=== PATIENT | female | born 1950 | race Caucasian/White ===

== ENCOUNTER → 2018-01-09 07:47 | Outpatient (CLI) | payer OTHER, SELFPAY ==
--- NOTE | 2018-01-09 | DI.MRI.S_ITS ---
PROCEDURE: MR KNEE RT WO CON INDICATIONS: CHRONIC KNEE PAIN TECHNIQUE: Noncontrast sagittal PD fast spin echo and T2 fast spin echo with fat saturation, sagittal 3-D FLASH with fat saturation; coronal T1 spin echo and PD fast spin echo with fat saturation, and axial PD fast spin echo with fat saturation through the knee. COMPARISON: [facility], MR, LOWER EXTREM. JNT WO CONTRAST, 07/14/2008, 15:05. FINDINGS: Image quality: Excellent. Menisci: There is amorphous high signal intensity within the anterior and horn and body of the lateral meniscus, without articular surface extension, consistent with mucoid degeneration, as before. There is medial extrusion of the medial meniscus. There is amorphous high signal intensity within the anterior horn, body, and posterior horn of the medial meniscus, with superior and inferior articular surface extension, indicating severe multifocal degenerative tearing. Cruciate ligaments: The anterior cruciate ligament demonstrates moderate signal loss. Posterior cruciate ligament is intact. Medial structures: The medial collateral ligament appears intact, but demonstrates a small amount of fluid deep to it. The posterior oblique ligament, semimembranosus tendon insertions, oblique popliteal ligament, and meniscocapsular junction appear intact. Visualized portions of the pes anserinus tendons appear normal. Mild T2 signal elevation within and surrounding the tibial insertion of the semimembranosus. Small amount of medial bursal fluid. Lateral structures: The lateral collateral ligament, long and short heads of the biceps femoris tendon appear intact. The popliteus tendon appears normal; the popliteofibular ligament appears intact. The posterosuperior and anteroinferior popliteomeniscal fascicles appear intact. The arcuate and fabellofibular ligaments appear intact, on either side of the lateral inferior geniculate artery. Iliotibial band appears normal. Anterior structures: The quadriceps and patellar tendons appear intact. Patellar alignment is normal. No femoral trochlear dysplasia or ventral trochlear prominence. No edema in the infrapatellar fat pad. Bones and cartilage: No bone marrow contusions or fractures. Moderate tricompartmental periarticular osteophyte formation is present. There is moderate ill-defined T2 signal elevation within the weightbearing aspects of the medial femoral condyle and medial tibial plateau. Mild ill-defined marrow signal within the weightbearing aspects of the lateral femoral condyle and lateral tibial plateau. Intraosseous ganglia within the lateral patellar facet are present, new since the prior examination. There is increased, moderate articular cartilage loss overlying the patellar apex and lateral patellar facet. There is increased, severe diffuse articular cartilage loss overlying the weightbearing aspects of the medial femoral condyle and medial tibial plateau, as well as the lateral femoral condyle and lateral tibial plateau. Joint space: There is physiologic knee joint fluid. No Nugent's cyst. Normal appearing synovial plicae are incidentally noted. IMPRESSION: 1. Partial-thickness tearing of the anterior cruciate ligament. 2. Medial meniscal extrusion and degenerative tearing. Mucoid degeneration lateral meniscus without definite tear. 3. Tricompartmental articular cartilage loss. 4. Small knee joint effusion. 5. Medial bursitis. 6. Insertional tendinitis of the semimembranosus. 7. Medial collateral ligament bursitis. Dictated by: Omi Blackman M.D. on 01/09/2018 at 9:50 Approved by: Omi Blackman M.D. on 01/09/2018 at 9:57
== END ==
PROVIDERS: Family Provider Family Medicine; PCP Family Medicine; Visit Provider Orthopaedic Surgery
DX: M25.561 Pain in right knee (principal); S83.241A Other tear of medial meniscus, current injury, right knee, initial encounter; M25.461 Effusion, right knee; M70.51 Other bursitis of knee, right knee; M76.9 Unspecified enthesopathy, lower limb, excluding foot
CPT/HCPCS: 73721

== ENCOUNTER 2018-02-25 06:17 | Inpatient (IN) | payer OTHER, SELFPAY ==
[2018-02-13 08:17] VITALS: BMI 40.3
[2018-02-25] VITALS (20 sets, daily range): BP systolic 90–132; BP diastolic 46–82; PULSE 65–90; RESP 10–16; TEMP 36.3–37.5; O2SAT 93–99; BMI 40.3
--- NOTE | 2018-02-25 06:30 | DI.RAD.S_ITS ---
PROCEDURE: XR KNEE RT 1TO2V INDICATIONS: post op knee TECHNIQUE: 2 view(s) of the knee acquired. COMPARISON: [facility] [place], XR KNEE ARTHRITIC SERIES , 12/23/2017, 10:26. FINDINGS: Bones: Patient is status post knee joint arthroplasty. Hardware components are in expected positions. Visualized bony structures are intact. Soft tissues: Overlying postoperative changes are noted. IMPRESSION: Acute postoperative changes of total right knee arthroplasty Dictated by: Josef Preston M.D. on 02/25/2018 at 11:27 Approved by: Josef Preston M.D. on 02/25/2018 at 11:27
[2018-02-25] MEDS: CELECOXIB 200 MG CAPSULE PO (06:52)
[2018-02-25] MEDS: ACETAMINOPHEN 325 MG TABLET 975 MG PO ×3 (06:52→20:22)
[2018-02-25] MEDS: LACTATED RINGERS 1,000 ML 42 ML IV ×2 (06:52→10:01)
[2018-02-25] MEDS: VANCOMYCIN 1,000 MG/200 ML FROZ.PIGGY 200 MG IV (06:54)
[2018-02-25] MEDS: PREGABALIN 75 MG CAPSULE PO (06:54)
[2018-02-25] MEDS: CEFAZOLIN 2 GM/100 ML FROZ.PIGGY IV ×2 (07:48→16:26)
--- NOTE | 2018-02-25 07:49 | PM.PREOP ---
Pre-operative Note Interval Note Pre-op Check: Yes History & Physical Reviewed by Physician and Yes Exam Performed Changes: No
--- NOTE | 2018-02-25 07:52 | SUR.PREOP ---
Block start time [0742] . Monitoring initiated and maintained throughout procedure. Oxygen and medications given per anesthesiologist instructions. Patient remained stable throughout procedure, no adverse reactions noted. Block end time [].0750
[2018-02-25] MEDS: TRANEXAMIC ACID 1,000 MG VIAL 1000 MG INJ ×2 (08:05→10:31)
--- NOTE | 2018-02-25 08:28 | SUR.OPER ---
Supine on padded OR bed. Pillow under head, arms secured on padded armboards <90 degree abduction. Safety belt across torso. Non-operative leg secured with tape over blanket over lower leg. Operative leg secured in DeMayo/Justin positioner. Foam padded brace at thigh of operative leg.
[2018-02-25] MEDS: BUPIVACAINE 0.25% W/ EPI VIAL 50 ML INJ (08:40)
[2018-02-25] MEDS: BUPIVACAINE LIPOSOME 266 MG/20 ML VIAL INJ (08:43)
[2018-02-25] MEDS: POVIDONE-IODINE 15 ML, SODIUM CHLORIDE 0.9% 250 ML TOP (08:45)
--- NOTE | 2018-02-25 09:32 | PM.PROC.1 ---
Procedures Date/Time Date of procedure: 02/25/18 Time of procedure: 07:40 Nerve Block Time out performed: Yes Local anesthetic used: lidocaine 1% (w/ epi 5mL + 15mL 0.5pivacaine) Location of anesthetic used: adductor canal Amount of anesthesia used (mL): 20 Nerve blocks: femoral (adductor canal) Procedure successful: Yes Patient tolerated procedure: well Complications: none Additional comments: Adductor canal block for post operative pain management. R/B discussed. Site marked. Consent verified/signed. Standard ASA monitors. NC O2. Chloroprep. Sterile technique. Femoral A/V/N identified medial mid thigh with US. Lidocaine skin wheal. 100mm x 21g Pajunk needle advanced with in-plane US guidance. Negative aspiration. LA injected medial and lateral to femoral artery. Negative aspiration throughout. No pain, no paresthesia with injection. VSS. Tolerated well. To OR.
--- NOTE | 2018-02-25 09:36 | P.PCN_ITS ---
Procedures Date/Time Date of procedure: 02/25/18 Time of procedure: 07:40 Nerve Block Time out performed: Yes Local anesthetic used: lidocaine 1% (w/ epi 5mL + 15mL 0.5 opivacaine) Location of anesthetic used: adductor canal Amount of anesthesia used (mL): 20 Nerve blocks: femoral (adductor canal) Procedure successful: Yes Patient tolerated procedure: well Complications: none Additional comments: Adductor canal block for post operative pain management. R /B discussed. Site marked. Consent verified/signed. Standard ASA monitors. NC O2. Chloroprep. Sterile technique. Femoral A/V/N identified medial mid thigh with US. Lidocaine skin wheal. 100mm x 21g Pajunk needle advanced with in-plane US guidance. Negative aspiration. LA injected medial and lateral to femoral artery. Negative aspiration throughout. No pain, no paresthesia with injection. VSS. Tolerated well. To OR.
--- NOTE | 2018-02-25 11:12 | P.OP_ITS ---
Operative Date/Time/Diagnoses Date of procedure: 02/25/18 Time of procedure: 08:06 Pre-op diagnosis: right knee OA Post-op diagnosis: same Procedure & Clinicians Procedure: right total knee arthroplasty Same procedure as scheduled: Yes Indications: The patient has had progressively worsening right knee pain with radiographic changes consistent with arthritis. Non-operative management has failed and the patient has requested total knee replacement. The risks, benefits and alternatives to surgery were discussed with the patient prior to proceeding. Risks discussed included, but were not limited to, failure to relieve pain, stiffness, infection, nerve damage, deep venous thrombosis, pulmonary embolism, stroke, coma, heart attack, permanent paralysis and , as well as the potential need for eventual revision of the prosthetic. Surgeon: Sandra Mehta Population Health Coach: Rowena Vanessa Anesthesia Type: General and Spinal Operative Notes Findings: severe right knee OA Closure Type: primary Specimen(s): none sent Implants & Drains: Emhta and Nephew Sheri BCS2 6 femur, 5 tibia, 35mm oval patella, poly 9 Applied: drain(s) Estimated Blood Loss (mL): 300 Blood products transfused: none Tourniquet time (min): 25 Procedure in detail: The patient was seen in the pre-operative area, where the patient identified the right knee as the operative site and this was marked with my initials. The patient received pre-operative antibiotics, and was taken to the operating room and placed on the operative table in the supine position. After satisfactory anesthesia, a part time receptionist out was performed. The right leg was encircled with a tourniquet about the proximal thigh, and the leg was prepared from the toes to the tourniquet with ChloroPrep in the usual fashion and draped through sterile drapes. The leg was elevated and exsanguinated with Eschmark bandage and the tourniquet inflated to [250] mmHg pressure. It was not working well so it was deflated after 7 minutes. The knee was approached through an approximately 18 cm incision centered over the patella and carried into the knee through a medial parapatellar arthrotomy. A portion of the medial and lateral meniscus was resected. Soft tissue was carefully mobilized around the patella the patella was measured with a caliper. Bone was resected from the patella and the patellar height was reconstituted with up an appropriate sized oval patellar component. For a cover was then placed on the patella. A small amount of additional medial and lateral meniscus was resected. The visionary guide fit well to the distal femur. It looked like an appropriate distal femoral cut and the cut was made without difficulty. The rotation was assessed and the appropriate size femoral guide was placed on the distal femur and finishing cuts were made. There was no evidence of notching. The anterior, posterior and chamfer cuts were then made. The posterior osteophytes and soft tissues were then removed. The posterior capsule was injected with part of a mixture of 60 ml 0.25% Marcaine mixed with 20 ml Exparel for post operative pain control. The remainder of this mixture was injected into the capsule and subcutaneous tissues during cement curing. The tibia was prepared and the visionaire guide fit well to the distal tibia. The rotation was assessed. The patient was placed in extension residual medial and lateral meniscus as well as any residual bone was carefully resected. 2mm additional tibia was resected. Hemostasis was achieved especially posteriorly. Additional local was injected into the posterior capsule. The extension gap was assessed and additional releases for gap balancing were performed as necessary. It was checked with the gap pneumatic tool operator. The femoral component was trial was placed and the notch was finished. Trial tibial and femoral components were then placed and the knee placed through a range of motion. Range of motion was [ 0-130], with good stability throughout the range. The tourniquet was reinflatted. The trials were then removed, and the tibia was finished. The bone was prepared with pulsatile lavage, and dried with a sponge. Cement was applied and the final tibia and femoral prosthetics placed. Excess cement was removed during and after cement curing. A glue gun had not been opened and needed to be found so the patella was cemented with a different cement batch. A brief Betadine soak was performed. After confirming there was no extruded cement posteriorly, the final tibial insert was placed. The knee was copiously irrigated and the tourniquet deflated. Hemostasis was obtained with the Aquamantys system. A drain was placed and brought out superolaterally. The capsule was closed with interrupted # 1 black braided suture. The subcutaneous layer was closed with barbed sutures, and the skin with a running 3-0 V-Lock suture and fili. An Aquacel Ag dressing was applied and the patient was taken to recovery having tolerated the procedure well. Complications: none Condition: stable Disposition: observation Plan for aftercare: The patient will be maintained on a standard total knee replacement protocol with weight bearing as tolerated. The patient will receive Aspirin and sequential compression devices for DVT prophylaxis. The patient will be discharged home when safe for the home environment.
[2018-02-25] MEDS: HYDROMORPHONE 2 MG INJ 0.5 MG IV (11:26)
--- NOTE | 2018-02-25 11:40 | SUR.PHASEI ---
attempted to call report, RN unavailable.
[2018-02-25] MEDS: LACTATED RINGERS 1,000 ML 125 ML IV ×2 (14:05→21:19)
--- NOTE | 2018-02-25 15:31 | PC.NURSE ---
PATIENT SLEEPY UPON ARRIVAL AT 1150. RESPONDS APPROPRIATELY. SAT 90% ON RA, HX TOBIAS. CONT PULSE OX PLACED. 2L/NC INITIATED R/T SLEEPING. HV UNCLAMPED AT 1300 PER QUICK PRINT OPERATOR INSTRUCTION. DAIN WRAP CDI. PATIENT ALERT AT 1400 AND CONVERSANT. RATES PAIN 3/10. DENIES NEED FOR PAIN MEDICATION AT THAT TIME. PHYSICAL THERAPY NOW IN WITH PATIENT. REPORT GIVEN TO VAN YUN.
--- NOTE | 2018-02-25 15:39 | PT.IIE ---
Current Diagnoses Unilateral primary osteoarthritis, right knee (02/25/18) Surgery Performed Operation Date: 02/25/18 07:45 Actual Procedures p Total Knee Arthroplasty(Right) - Sandra Mehta MD Surgical History (Last Updated 02/13/18 @ 09:28 by Yamileth Morales, RN) History of arthroplasty of right shoulder (Acute) History of section (Acute) History of tonsillectomy (Acute) History of total left hip arthroplasty (Acute) History of total right hip arthroplasty (Acute) Hx of cholecystectomy (Acute) S/P left unicompartmental knee replacement (Acute) Status post wrist surgery (Acute) Medical History (Last Updated 02/13/18 @ 09:31 by Yamileth Morales RN) Anxiety (Acute) Arthritis (Acute) Asthma (Acute) Depression (Acute) Eczema (Acute) Fatty liver (Acute) Glucose intolerance (Acute) Gout (Acute) HTN (hypertension) (Acute) Hyperlipidemia (Acute) Osteoarthritis (Acute) Palpitations (Acute) Rosacea (Acute) Sleep apnea (Acute) TIA (transient ischemic attack) (Acute) Vertigo (Acute) Physical Therapy Inpatient Evaluation/Re-Eval M1 PT/OT-IP Prior Functional Status Start: 02/25/18 16:37 Freq: NEEDED Status: Active Protocol: Document 02/25/18 15:39 MDD (Rec: 02/25/18 16:47 MDD [email or web address]) Medical Review Prior Functional Status Medical History Reviewed Yes Communication normal Mobility and Gait Pt used forearm crutches around her house, depending on how she felt, she would use one or two. Pt does report constant vertigo for the last 10 years, has learned to adjust by not moving her head too fast and modifying her surroundings. Activities of Daily Living and IADL's independent Social History Household Members none Living Arrangements House Number of Floors (Floors) Two Floors Number of Stairs To Enter/Railing? no stairs to enter. Pt has two floors in her home but only uses the first floor. 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 She [place] [address] M2 PT-IP Current Condition Start: 02/25/18 16:37 Freq: NEEDED Status: Active Protocol: Document 02/25/18 15:39 MDD (Rec: 02/25/18 16:47 MDD [email or web address]) Physical Therapy Current Condition Current Condition Evaluation Date 02/25/18 Treatment Diagnosis s/P R TKA Onset Date 02/24/18 Weight Bearing Status Weight Bearing Status Weight Bear as Tolerated M3 PT-IP Subjective Start: 02/25/18 16:37 Freq: NEEDED Status: Active Protocol: Document 02/25/18 15:39 MDD (Rec: 02/25/18 16:47 MDD [email or web address]) Subjective Physical Therapy Visit Type Type Initial Evaluation Visit Start Time 14:56 Visit Stop Time 15:39 Total Visit Minutes 47 Notes BP supine 104/59 mm Hg, sitting EOB 95/54 mm Hg. 112/62 mm Hg with activity. Number of LABORER TREE TAPPING Visits 0 Physical Therapy Visit Comments Patient Comments Pt motivated to get out of bed today. Therapy Pain Assessment Pain When Pain Assessed At Rest Pain Present Pain Present Pain Reported Location Right Knee Intensity 3 Scale Used Numeric (1 - 10) Description Aching M4 PT-IP Mobility and Gait Start: 02/25/18 16:37 Freq: NEEDED Status: Active Protocol: Document 02/25/18 15:39 MDD (Rec: 02/25/18 16:47 MDD [email or web address]) PT-Bed Mobility Assessment Rolling Type of Rolling Roll to Left Level of Assist Contact Guard Assistance Supine to Sit Supine to Sit Minimal Assistance Scooting Scooting to Edge of Bed Minimal Assistance PT-Transfer Assessment Sit to and From Stand Sit to and from Stand Contact Guard Assistance Equipment Transfer Assistive Device Gait Belt Front Wheeled Walker Transfers Transfer Destination Chair Transfer Technique Stand Step Pivot Transfer Ability Level of Assist Contact Guard Assistance Gait Assessment Gait Gait Assistance Required: Contact Guard Assist Distance (Feet) (feet) 5 Able to Maintain Weight Bearing Status Yes During Gait Assistive Devices Assistive Device Gait Belt Front Wheeled Walker Gait Deviations General Gait Pattern Within Normal Limits Antalgic Comments Gait Comments Did not perform additional gait training today due to drop in BP with supine to sit. PT-Balance Assessment Sitting Balance and Reactions Static Sitting Balance Ability Normal Dynamic Sitting Balance Ability Normal Standing Balance and Reactions Static Standing Balance Ability Good Dynamic Standing Balance Ability Good M5 PT-IP Objective Assessments Start: 02/25/18 16:37 Freq: NEEDED Status: Active Protocol: Document 02/25/18 15:39 MDD (Rec: 02/25/18 16:47 MDD [email or web address]) Orientation Orientation/Cognition Level of Alertness Alert Orientation Name Age Birthday Month Date Year Day of Week Place Situation Language Function Ability No Deficits Noted Safety Awareness Understands Safety Issues Memory Description No Deficits Noted Gross Range of Motion Lower Extremity ROM Assessment Right Impaired Strength Lower Extremity Strength Assessment Within Functional Limits Coordination Assessment Gross Coordination Gross Coordination WNL Sensation Assessment Sensation Gross Sensation WNL M6 PT-IP Treatment Start: 02/25/18 16:37 Freq: NEEDED Status: Active Protocol: Document 02/25/18 15:39 MDD (Rec: 02/25/18 16:47 MDD [email or web address]) Physical Therapy Treatment Exercises Knee ROM Measurement -10 to 80 degrees Education Education Provided Precautions Weight Bearing Status Post-Op Packet Safety M7 PT-IP Assessment and Plan Start: 02/25/18 16:37 Freq: NEEDED Status: Active Protocol: Document 02/25/18 15:39 MDD (Rec: 02/25/18 16:47 MDD [email or web address]) PT Summary Assessment and Plan Potential Rehabilitation Potential Excellent Status of Condition at Evaluation Stable Summary Impairments Pain ROM Balance Transfers Gait Activity Tolerance Progress Towards Goals Progressing Toward Goals Assessment Summary Pt demonstrates good progress towards goals this day. She required min A with R LE for supine to sit (does have a rail and a trapeze that she uses to get out of bed at home ). She was able to take a few steps and transfer with CGA. Will benefit from additional 1-2 sessions PT to assure she is safe to return home independently prior to d/c. Goals Bed Mobility Goal Independent Transfer Goal Independent Gait Goal Independent Gait Distance 100 feet Days to Meet Goals 2 Frequency of Treatment Frequency Of Treatment Twice a Day Treatment Plan Physical Therapy Treatment Plan Transfer Training Gait Training Therapeutic Exercise Discharge Planning Other Recommendations and Next Treatment Continue with gait endurance/ Focus activity tolerance. Recommendations To Nursing Amount of Assist Needed 1 Person Assist Discharge Recommendations PT Discharge Recommendations Home Equipment Needed for Home Before Pt may benefit from a shower Discharge chair - reports she uses two walkers set up near her stand alone tub (one in the tub at all times) and one next to it.
[2018-02-25] MEDS: ASPIRIN EC 81 MG TABLET PO (20:20)
[2018-02-25] MEDS: BUSPIRONE 15 MG TABLET PO (20:20)
[2018-02-25] MEDS: CITALOPRAM 20 MG TABLET 40 MG PO (20:20)
[2018-02-25] MEDS: LISINOPRIL 10 MG TABLET PO (20:21)
[2018-02-25] MEDS: TOPIRAMATE 25 MG TABLET 50 MG PO (20:32)
[2018-02-25] MEDS: IBUPROFEN 600 MG TABLET PO (23:44)
[2018-02-26] MEDS: CEFAZOLIN 2 GM/100 ML FROZ.PIGGY IV (02:06)
[2018-02-26] MEDS: OXYCODONE IR 5 MG TABLET PO ×6 (02:11→23:04)
--- NOTE | 2018-02-26 05:01 | PC.NURSE ---
Assumed care of pt from outgoing shift at 2300 8-14. Pt awake and alert. denies pain, was worried that she should be getting tylenol four times a day and not just three. discussed other pain med and pain relieving measures with pt and she stated she wanted to hold off for now on percolone and maybe an advil later. Pt has fluids infusing, tolerating. Pt very mobile with walker, ambulates steady gait. PT stated that this is her 6th knee replacement to same knee. Pt uses call light. belongings and call light within reach. bed alarm on for pt safety, end tidal CO2 on and monitoring- no alarms have sounded and pt breathing normal. Pt compliant with nursing assessment and voices needs. bed alarm on, side rails upx4 for pt request, will continue to monitor
[2018-02-26 05:05] VITALS: BP 105/60; PULSE 66; RESP 15; TEMP 36.4; O2SAT 99
[2018-02-26 06:00] LABS: Hematocrit 29.3 % (36-46)
[2018-02-26 08:19] VITALS: BP 92/32; PULSE 69; RESP 16; TEMP 37.2; O2SAT 99
--- NOTE | 2018-02-26 08:31 | PM.PNPO.1 ---
Subjective Date Patient Seen: 02/26/18 Time Patient Seen: 08:32 Interval history: Post op day 1. Patient is comfortably sitting in chair bedside. Patient reports pain level to be 7/10 with no pain medications. She would like pain meds at this time. Patient reports ambulating with walker in hallway during PT. Patient is concerned that she may be going home today and would prefer to be discharged tomorrow since her friends will be coming into town tomorrow morning to assist her at home. Patient denies chest pain, distress, fever or chills. Exam Vital Signs (past 8 hours): - 02/26/18 05:05 02/26/18 08:19 Temperature 97.6 F 98.9 F Pulse Rate 66 69 Respiratory Rate 15 16 Blood Pressure 105/60 92/32 L Pulse Oximetry 99 99 Oxygen Delivery Method Room Air Oxygen Flow Rate 0 Narrative Exam Narrative: Patient is alert and oriented. Patient is in no acute distress. Patient appears as a well developed women. Dressing noted on right knee with wound VAC intact. There is moderate output in wound vac. Expected post operative R knee swelling and tenderness noted. Dorsalis pedis and radial pulses 2+ bilaterally. Sensory to light touch intact in the lower extremities bilaterally. Muscle strength in dorsiflexion, plantarflexion and great toe extension 5/5 bilaterally. Calfs are soft, compressible and non tender bilaterally. Objective Labs Result Diagrams: 02/26/18 05:26 Labs: Laboratory Results - last 24 hr 02/26/18 05:26 Hgb 10.0 L Hct 29.3 L Assessment & Plan Post-op Postoperative Procedures Operation Date: 02/25/18 07:45 Actual Procedures Side Surgeon p Total Knee Arthroplasty Right Sandra Mehta MD Patient will continue mobilizing with PT. Plan to discharge home tomorrow. Spoke with nurse about pain control. Postoperative day: 1 Postoperative status: doing well Postoperative plan: routine post-op care and ambulate Time Spent With Patient less than 15 minutes Quality VTE Deep Vein Thrombosis/Pulmonary Embolism Present on Admission: No
[2018-02-26] MEDS: ACETAMINOPHEN 325 MG TABLET 975 MG PO ×3 (08:45→20:18)
[2018-02-26] MEDS: ASPIRIN EC 81 MG TABLET PO ×2 (08:52→20:19)
[2018-02-26] MEDS: DOCUSATE 100 MG CAPSULE PO ×2 (08:52→20:19)
[2018-02-26] MEDS: TOPIRAMATE 25 MG TABLET 50 MG PO ×2 (10:28→20:20)
--- NOTE | 2018-02-26 10:32 | PT.IPTN ---
Current Diagnoses Unilateral primary osteoarthritis, right knee (02/25/18) Surgery Performed Operation Date: 02/25/18 07:45 Actual Procedures p Total Knee Arthroplasty(Right) - Sandra Mehta MD Physical Therapy Treatment Note M2 PT-IP Current Condition Start: 02/25/18 16:37 Freq: NEEDED Status: Active Protocol: Document 02/25/18 15:39 MDD (Rec: 02/25/18 16:47 MDD [email or web address]) Physical Therapy Current Condition Current Condition Evaluation Date 02/25/18 Treatment Diagnosis s/P R TKA Onset Date 02/24/18 Weight Bearing Status Weight Bearing Status Weight Bear as Tolerated M3 PT-IP Subjective Start: 02/25/18 16:37 Freq: NEEDED Status: Active Protocol: Document 02/26/18 10:32 MDD (Rec: 02/26/18 10:57 MDD [email or web address]) Subjective Physical Therapy Visit Type Type Treatment Note Visit Start Time 10:00 Visit Stop Time 10:32 Total Visit Minutes 32 Notes BP 117/66 mm Hg at rest. Number of SPORTS RECRUITER Visits 0 Physical Therapy Visit Comments Patient Comments Pt reports feeling much more pain today in her right knee than yesterday. Is concerned about getting everything coordinated to d/c today, as well as her ability to manage independently at home. Therapy Pain Assessment Pain When Pain Assessed At Rest Pain Present Pain Present Pain Reported Location Right Knee Intensity 5 Scale Used Numeric (1 - 10) Description Aching Pain Management Techniques Apply Cold Timing of Activity with Medications M4 PT-IP Mobility and Gait Start: 02/25/18 16:37 Freq: NEEDED Status: Active Protocol: Document 02/25/18 15:39 MDD (Rec: 02/25/18 16:47 MDD [email or web address]) PT-Bed Mobility Assessment Rolling Type of Rolling Roll to Left Level of Assist Contact Guard Assistance Supine to Sit Supine to Sit Minimal Assistance Scooting Scooting to Edge of Bed Minimal Assistance PT-Transfer Assessment Sit to and From Stand Sit to and from Stand Contact Guard Assistance Equipment Transfer Assistive Device Gait Belt Front Wheeled Walker Transfers Transfer Destination Chair Transfer Technique Stand Step Pivot Transfer Ability Level of Assist Contact Guard Assistance Gait Assessment Gait Gait Assistance Required: Contact Guard Assist Distance (Feet) (feet) 5 Able to Maintain Weight Bearing Status Yes During Gait Assistive Devices Assistive Device Gait Belt Front Wheeled Walker Gait Deviations General Gait Pattern Within Normal Limits Antalgic Comments Gait Comments Did not perform additional gait training today due to drop in BP with supine to sit. PT-Balance Assessment Sitting Balance and Reactions Static Sitting Balance Ability Normal Dynamic Sitting Balance Ability Normal Standing Balance and Reactions Static Standing Balance Ability Good Dynamic Standing Balance Ability Good M5 PT-IP Objective Assessments Start: 02/25/18 16:37 Freq: NEEDED Status: Active Protocol: Document 02/25/18 15:39 MDD (Rec: 02/25/18 16:47 MDD [email or web address]) Orientation Orientation/Cognition Level of Alertness Alert Orientation Name Age Birthday Month Date Year Day of Week Place Situation Language Function Ability No Deficits Noted Safety Awareness Understands Safety Issues Memory Description No Deficits Noted Gross Range of Motion Lower Extremity ROM Assessment Right Impaired Strength Lower Extremity Strength Assessment Within Functional Limits Coordination Assessment Gross Coordination Gross Coordination WNL Sensation Assessment Sensation Gross Sensation WNL M6 PT-IP Treatment Start: 02/25/18 16:37 Freq: NEEDED Status: Active Protocol: Document 02/26/18 10:32 MDD (Rec: 02/26/18 10:57 MDD [email or web address]) Physical Therapy Treatment Exercises Exercises Ankle Pumps Gluteal Sets Quad Sets Heel Slides Straight Leg Raises Education Education Provided Precautions Safety M7 PT-IP Assessment and Plan Start: 02/25/18 16:37 Freq: NEEDED Status: Active Protocol: Document 02/26/18 10:32 MDD (Rec: 02/26/18 10:57 MDD [email or web address]) PT Summary Assessment and Plan Potential Rehabilitation Potential Excellent Status of Condition at Evaluation Stable Summary Impairments Pain ROM Bed Mobility Transfers Gait Activity Tolerance Progress Towards Goals Progressing Toward Goals Slow Progress due to Pain Assessment Summary Pt limited this morning in gait endurance by increased pain in R knee. She had a little more difficulty with sit to stand, requiring SBA, but was able to independently perform sit to supine using a gait belt to assist with R LE movement. She should continue to benefit from inpatient therapy to maximize function for safe d/c home. Goals Bed Mobility Goal Independent Transfer Goal Independent Gait Goal Independent Gait Distance 100 feet Days to Meet Goals 2 Frequency of Treatment Frequency Of Treatment Twice a Day Treatment Plan Physical Therapy Treatment Plan Transfer Training Gait Training Therapeutic Exercise Discharge Planning Other Recommendations and Next Treatment Continue with gait endurance/ Focus activity tolerance. Recommendations To Nursing Amount of Assist Needed 1 Person Assist Discharge Recommendations PT Discharge Recommendations Home
[2018-02-26 12:07] VITALS: BP 98/50; PULSE 61; RESP 15; TEMP 37.2; O2SAT 97
[2018-02-26] MEDS: IBUPROFEN 600 MG TABLET PO (13:43)
--- NOTE | 2018-02-26 14:21 | CM.DANOTE ---
Patient is a 67 year old female who was admitted on 02/25/18 for Rt Total Knee Arthro. Pt has [facility] for insurance and her PCP is Dr. Garnett. EMR was reviewed. Per Ortho PA, pt tolerated procedure well but not stable for d/c today but likely tomorrow pending PT. Per PT, pt having more pain this morning and will continue working with the pt today with anticipation of d/c home alone tomorrow. SW met bedside with pt and explained role and pt confirmed that she lives at home alone on [address] but has local supportive friends. Pt lives in a cabin on [address] with composting toilet and claw foot bath tub but pt has had 5 joint replacement surgeries in the past and is well equipped for managing at home on one floor of her house with supportive friends. Pt also has a helpful service dog due to her chronic vertigo and mobility issues. Pt is independent at baseline and has crutches and a walker for use if needed. 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 SW updated PT and Ortho PA on need for morning discharge if pt is medically stable in order to catch the ferry back home. Plan: SW to follow closely for likely pt d/c home tomorrow morning if medically stable to catch the 11ish ferry back to [place] via friend POV. SHAYE Isaacs Discharge Planning/Care Management CM Discharge Assessment Start: 02/26/18 13:56 Freq: Status: Active Protocol: Document 02/26/18 13:56 BF (Rec: 02/26/18 14:21 [id number]) Discharge Planning Assessment Assigned Translator And Interpreter SHAYE LANDEROS/Assigned Designee Name Escobarstanley Howell Contact Information [phone] Advance Directives? Yes: POLST form Advance Directives on File No History Provided By Patient Medical Record Has Patient been admitted in last 30 No days? Prior Living Arrangements House Household Members none Comment Lives in a cabin on [address] with composting toilet Type of transporation used prior to Drives own vehicle admit Independent with ADL's Yes Is patient alert and oriented? Yes Caregiver for Another No DME Already Rented / Owned FWW / Walker Comment Likely home with outpt PT pending pain management Barriers to Discharge Yes Comment [place] to [place] and lives alone but has supports and transport Discharge Plan Home Community Services Physical Therapy Transportation Arrangement Friend to provide transport home via ferry at d/c. Referrals Initiated None needed Inpatient Status as of 02/25/18 Whiteboard Updated in Patient Room with Yes name and ext. # of Translator And Interpreter Review Status In Process Next Review Date 02/27/18 Next Review Type Continued Stay Review
--- NOTE | 2018-02-26 15:05 | PC.NURSE ---
Patient doing well today, working with PT again at this time. Hemovac still putting out 150cc, intact. Per Lucille Doyle, dc drain once drainage is less than 100ml/shift. Patient planning for DC early tomorrow morning, aware. call light within reach.
[2018-02-26 15:20] VITALS: BP 104/52; PULSE 68; RESP 18; TEMP 36.3
--- NOTE | 2018-02-26 15:39 | PT.IPTN ---
Current Diagnoses Unilateral primary osteoarthritis, right knee (02/25/18) Surgery Performed Operation Date: 02/25/18 07:45 Actual Procedures p Total Knee Arthroplasty(Right) - Sandra Mehta MD Physical Therapy Treatment Note M2 PT-IP Current Condition Start: 02/25/18 16:37 Freq: NEEDED Status: Active Protocol: Document 02/25/18 15:39 MDD (Rec: 02/25/18 16:47 MDD [email or web address]) Physical Therapy Current Condition Current Condition Evaluation Date 02/25/18 Treatment Diagnosis s/P R TKA Onset Date 02/24/18 Weight Bearing Status Weight Bearing Status Weight Bear as Tolerated M3 PT-IP Subjective Start: 02/25/18 16:37 Freq: NEEDED Status: Active Protocol: Document 02/26/18 15:35 GGD (Rec: 02/26/18 15:39 GGD [email or web address]) Subjective Physical Therapy Visit Type Type Treatment Note Visit Start Time 15:00 Visit Stop Time 15:30 Total Visit Minutes 30 Physical Therapy Visit Comments Patient Comments Pt states she plans on going home tomorrow. Therapy Pain Assessment Pain When Pain Assessed At Rest Pain Present Pain Present Pain Reported Location Right Knee Intensity 5 Scale Used Numeric (1 - 10) Pain Management Techniques Apply Cold Timing of Activity with Medications M4 PT-IP Mobility and Gait Start: 02/25/18 16:37 Freq: NEEDED Status: Active Protocol: Document 02/26/18 15:35 GGD (Rec: 02/26/18 15:39 GGD [email or web address]) PT-Bed Mobility Assessment Sit to Supine Sit to Supine Contact Guard Assistance Scooting Scooting to Edge of Bed Standby Assistance PT-Transfer Assessment Sit to and From Stand Sit to and from Stand Contact Guard Assistance Equipment Transfer Assistive Device Gait Belt Front Wheeled Walker Transfers Transfer Destination Bed Gait Assessment Gait Gait Assistance Required: Contact Guard Assist Distance (Feet) (feet) 175 Assistive Devices Assistive Device Gait Belt Front Wheeled Walker Gait Deviations General Gait Pattern Within Normal Limits Antalgic M5 PT-IP Objective Assessments Start: 02/25/18 16:37 Freq: NEEDED Status: Active Protocol: Document 02/25/18 15:39 MDD (Rec: 02/25/18 16:47 MDD [email or web address]) Orientation Orientation/Cognition Level of Alertness Alert Orientation Name Age Birthday Month Date Year Day of Week Place Situation Language Function Ability No Deficits Noted Safety Awareness Understands Safety Issues Memory Description No Deficits Noted Gross Range of Motion Lower Extremity ROM Assessment Right Impaired Strength Lower Extremity Strength Assessment Within Functional Limits Coordination Assessment Gross Coordination Gross Coordination WNL Sensation Assessment Sensation Gross Sensation WNL M6 PT-IP Treatment Start: 02/25/18 16:37 Freq: NEEDED Status: Active Protocol: Document 02/26/18 15:35 GGD (Rec: 02/26/18 15:39 GGD [email or web address]) Physical Therapy Treatment Exercises Exercises Ankle Pumps Quad Sets Heel Slides Straight Leg Raises Seated Knee Flexion/Extension M7 PT-IP Assessment and Plan Start: 02/25/18 16:37 Freq: NEEDED Status: Active Protocol: Document 02/26/18 15:35 GGD (Rec: 02/26/18 15:39 GGD [email or web address]) PT Summary Assessment and Plan Summary Assessment Summary Pt improving with mobility. She SBA to CGA with mobility. She was able to progress her gait distance. Frequency of Treatment Frequency Of Treatment Twice a Day Treatment Plan Physical Therapy Treatment Plan Transfer Training Gait Training Therapeutic Exercise Discharge Planning Other Recommendations and Next Treatment Continue with gait endurance/ Focus activity tolerance. Recommendations To Nursing Amount of Assist Needed 1 Person Assist Discharge Recommendations PT Discharge Recommendations Home
--- NOTE | 2018-02-26 19:00 | PC.NURSE ---
Shaina shift note: Patient awake and alert, up out of bed to BR and chair. Shekhar wrap overlying Aquacel CDI. CMS intact RLE. Pain relieved adequately with Oxycodone x 1 tab and scheduled Tylenol. Hemovac DC'd as ordered. < 100ml. Per PT patient to home in the am. Patient would like to go home by 0900 to catch Exam18 to [place]. Mobilizing well. Call light within reach .
[2018-02-26 19:45] VITALS: BP 107/67; PULSE 67; RESP 18; TEMP 36.7
[2018-02-26] MEDS: BUSPIRONE 15 MG TABLET PO (20:18)
[2018-02-26] MEDS: CITALOPRAM 20 MG TABLET 40 MG PO (20:19)
[2018-02-26 20:25] VITALS: BP 104/52; PULSE 61
[2018-02-27 00:19] VITALS: BP 110/66; PULSE 63; RESP 15; TEMP 36.6
[2018-02-27] MEDS: OXYCODONE IR 5 MG TABLET PO ×2 (02:13→06:49)
[2018-02-27 04:58] VITALS: BP 99/60; PULSE 62; RESP 15; TEMP 36.6
--- NOTE | 2018-02-27 07:40 | PM.DS.1 ---
History of Present Illness Date Patient Seen: 02/27/18 Time Patient Seen: 07:41 Chief complaint: rt knee total arthroplasty [id number] Narrative: The patient has had progressively worsening right knee pain with radiographic changes consistent with arthritis. Non-operative management has failed and the patient has requested total knee replacement. The risks, benefits and alternatives to surgery were discussed with the patient prior to proceeding. Risks discussed included, but were not limited to, failure to relieve pain, stiffness, infection, nerve damage, deep venous thrombosis, pulmonary embolism, stroke, coma, heart attack, permanent paralysis and , as well as the potential need for eventual revision of the prosthetic. Discharge Providers Date of admission: 02/25/18 06:17 Primary care physician: Willam Garnett MD Consults: 02/25/18 13:17 Consult to Discharge Planning Routine Comment: Consult to Physical Therapy Evaluate & Treat Comment: oob today Physician Instructions: postop TKA protocol Consult to Respiratory Therapy Evaluate & Treat Comment: Physician Instructions: Evaluate and treat Discharge provider: Xavier Doyle PA-C Summary Discharge Diagnosis: Status post right total knee arthroplasty Hospital Course: Patient admitted to the hospital for right total knee arthroplasty. Patient consented to the same. Patient taken to the operating room underwent right total knee arthroplasty. Patient had general and spinal anesthesia. Patient back in her room recovering well as in stable condition. She does have caregiver home to assist her. She will be maintained on a standard total knee replacement protocol with weight-bearing as tolerated. Exam Vital Signs (past 8 hours): - 02/27/18 00:19 02/27/18 04:58 Temperature 98 F 98 F Pulse Rate 63 62 Respiratory Rate 15 15 Blood Pressure 110/66 99/60 Oxygen Delivery Method Room Air Oxygen Flow Rate 0 Narrative Exam Narrative: 67-year-old female resting comfortably in bed in no apparent distress. The pain is been moderate. No fever chills. No shortness of breath or chest pain. Her right knee dressing is clean, dry and intact. Sensation grossly intact to light touch right lower extremity. Motor function is intact distally. Objective Labs Result Diagrams: 02/26/18 05:26 Discharge Plan Discharge Plan Patient Disposition: Home, Self-Care Discharge comment: DC home today Discharge Med Rec/Prescriptions Prescriptions: New acetaminophen 325 mg Tablet 975 mg PO TID Qty: 90 RF: 0 aspirin 81 mg Tablet,Delayed Release (Dr/Ec) 81 mg PO BID Qty: 60 RF: 0 ibuprofen 600 mg Tablet 600 mg PO Q6HR PRN (Reason: As Needed For Fever/Mild Pain) Qty: 90 RF: 0 oxycodone 5 mg tablet 5 mg PO Q3H PRN (Reason: pain) Qty: 60 RF: 0 oxycodone 5 mg Tablet 5 mg PO Q3HR PRN (Reason: Pain, Moderate (4-6)) Qty: 60 RF: 0 Continue furosemide [Lasix] 20 MG tablet 10 mg PO QDAY Qty: 0 RF: 0 phentermine 15 mg Capsule 15 mg PO QAM RF: 0 naproxen 500 mg Tablet 500 mg PO BID RF: 0 topiramate 50 mg Tablet 50 mg PO BID RF: 0 buspirone 5 MG tablet 15 mg PO BEDTIME RF: 0 citalopram 40 MG tablet 40 mg PO BEDTIME RF: 0 lisinopril 10 MG tablet 10 mg PO BEDTIME RF: 0 albuterol sulfate [Ventolin HFA] 90 MCG/PUFF HFA aerosol inhaler 2 puff INH Q4H PRN (Reason: Asthma) RF: 0 Disabled Parking Permit 1 ea miscellaneous DIRECTED RF: 0 Discontinued aspirin 81 mg Tablet,Delayed Release (Dr/Ec) 81 mg PO DAILY RF: 0 Follow up/Referrals: aSndra Mehta MD [Physician] - (Follow up 5-7 days) Willam Garnett MD [Primary Care Provider] - Provider Discharge Instructions Diet: Diet as Tolerated Activity: WBAT Cold/Heat Therapy: Ice as needed Skin/Wound/Dressing Care Report to your healthcare provider any signs of infection, such as:: chills, fever, increased pain and unusual drainage Dressing: Keep clean and dry Visit Report/Discharge Packet Instructions: DI for Knee Replacement Stand Alone Forms: Surgery Discharge Visit Report Forms: Stroke Signs & Symptoms Discharge Data Primary Care Provider: Willam Garnett Attending Provider: Sandra Mehta Admit Date/Time: 02/25/18 06:17 Quality VTE Deep Vein Thrombosis/Pulmonary Embolism Present on Admission: No
[2018-02-27 07:43] VITALS: BP 106/64; PULSE 62; RESP 16; TEMP 36.9
--- NOTE | 2018-02-27 08:48 | CM.DPC ---
DCP Discharge Home Per Ortho PA, pt is medically stable to d/c home today with no identified barriers to discharge. Per PT, pt making progress and less painful today and safe d/c home. SW met bedside with pt and explained role again and pt confirms that she is agreeable with d/c home and her friend is on his way on the ferry to transport her home. Pt does not anticipate any needs once home to [place]. Plan: Patient to d/c home today via friend POV back to [place] and has Priority Boarding pass for the 1200 ferry. No SW needs at this time. SHAYE Isaacs
[2018-02-27] MEDS: ACETAMINOPHEN 325 MG TABLET 975 MG PO (09:23)
[2018-02-27] MEDS: ASPIRIN EC 81 MG TABLET PO (09:24)
[2018-02-27] MEDS: TOPIRAMATE 25 MG TABLET 50 MG PO (09:24)
[2018-02-27] MEDS: OXYCODONE IR 5 MG TABLET 10 MG PO (11:06)
--- NOTE | 2018-02-27 11:06 | PC.NURSE ---
discharge instructions and home care handout reviewed with patient, patient states understanding and has no further questions or concerns at this time. patient reports having follow up appointments already scheduled. Patient given prescription for oxycodone to fill at pharmacy of choice. patient given oxycodone 10mg po prior to leaving per order as patient has to ride ferry to [place] and wanted adequate control to get home. IV was dc'd intact. Aquacel dressing remains CDI. Patient instructed to call surgeons office with any questions or concerns. Patient escorted out via wheelchair with all belongings by TOWN PLANNER, to be discharged to home with a friend.
== END 2018-02-27 11:11 | disposition home or self-care (01) | DRG 470 ==
PROVIDERS: Admitting Provider Orthopaedic Surgery; Family Provider Family Medicine; PCP Family Medicine; Visit Provider Orthopaedic Surgery
PROC: 0SRC0JZ Replacement of Right Knee Joint with Synthetic Substitute, Open Approach (ICD-10-PCS; CPT 27447; principal; 2018-02-25 07:45)
DX: M17.11 Unilateral primary osteoarthritis, right knee (principal); I10 Essential (primary) hypertension; J45.909 Unspecified asthma, uncomplicated; G47.33 Obstructive sleep apnea (adult) (pediatric); F41.9 Anxiety disorder, unspecified; Z86.73 Personal history of transient ischemic attack (TIA), and cerebral infarction without residual deficits
CPT/HCPCS: 36415; 64450; 73560; 85014; 85018; 94760; 97110; 97161; 97530; C1776; C9290; J0690; J1100; J1170; J2250; J2405; J2704; J3010; J3370

== ENCOUNTER → 2018-05-03 08:58 | Outpatient (CLI) | payer OTHER, SELFPAY ==
[2018-02-25 13:17] VITALS: BMI 40.3
--- NOTE | 2018-05-03 | DI.MG.S_ITS ---
BILATERAL DIGITAL SCREENING MAMMOGRAM 3D/2D WITH CAD: 05/03/2018 CLINICAL: Routine screening. Family history of breast cancer. Comparison is made to exams dated: 08/09/2015 mammogram, 10/13/2012 mammogram - [facility], and 05/24/2010 mammogram - [facility]. There are scattered fibroglandular elements in both breasts. Current study was also evaluated with a Computer Aided Detection (CAD) system. No significant masses, calcifications, or other findings are seen in either breast. There has been no significant interval change. IMPRESSION: NEGATIVE There is no mammographic evidence of malignancy. A 1 year screening mammogram is recommended. This exam was interpreted at Station ID: [id number]. NOTE: For mammograms, a report in lay terms will be sent to the patient. Approximately 15% of breast malignancies will not be visualized mammographically. In the management of a palpable breast mass, a negative mammogram must not discourage biopsy of a clinically suspicious lesion. Electronically Signed By: Danielle hodges/vern:05/06/2018 09:42:39 letter sent: Normal Exam ACR BI-RADS Category 1: Negative [id number]
== END ==
PROVIDERS: Family Provider Family Medicine; PCP Family Medicine; Visit Provider Family Medicine
DX: Z12.31 Encounter for screening mammogram for malignant neoplasm of breast (principal); Z80.3 Family history of malignant neoplasm of breast
CPT/HCPCS: 77063; 77067

== ENCOUNTER → 2018-05-28 10:20 | Outpatient (CLI) | payer OTHER, MEDICAID, SELFPAY ==
[2018-02-25 13:17] VITALS: BMI 40.3
[2018-05-28 12:27] LABS: Add Manual Diff / Slide Review NO; Basophils Percent Auto 0.7 % (0-2); Eosinophils Percent Auto 2.5 % (2-4); Hematocrit 39.4 % (36-46); Hemoglobin 12.6 g/dL (12.0-16.0); Lymphocytes Percent Auto 24.2 % (25-40); Mean Corpuscular Hemoglobin 29.7 PG (26-34); Mean Corpuscular Volume 92.6 fL (80-100); Monocytes Percent Auto 10.6 % (3-14); Neutrophils Absolute Auto 5000 /uL (3000-5900); Platelet Count 354 X10^3/uL (150-400); Red Blood Cell Count 4.26 X10^6/uL (4.0-5.2)
[2018-05-28 12:50] LABS: Erythrocyte Sedimentation Rate 31 MM/HR (0-20)
[2018-05-28 20:28] LABS: C-Reactive Protein Quant < 0.5 mg/dL (<1.0)
== END ==
PROVIDERS: Family Provider Nurse Practitioner Family; PCP Nurse Practitioner Family; Visit Provider Orthopaedic Surgery
DX: M17.11 Unilateral primary osteoarthritis, right knee (principal); Z96.651 Presence of right artificial knee joint
CPT/HCPCS: 36415; 85025; 85651; 86140

== ENCOUNTER → 2018-09-23 16:31 | Outpatient (CLI) | payer OTHER, MEDICAID, SELFPAY ==
[2018-02-25 13:17] VITALS: BMI 40.3
--- NOTE | 2018-09-23 16:34 | DI.CT.S_ITS ---
PROCEDURE: CT PEL WO CON INDICATIONS: PAIN IN RIGHT HIP TECHNIQUE: Noncontrast 3 mm axial sections acquired through the bony pelvis, with coronal and sagittal reformatting. COMPARISON: [facility], CT, ABDOMEN WITH CONTRAST, 12/15/2013, 11:08. FINDINGS: Image quality: Excellent. Bones: Bilateral hip arthroplasties. No evidence of hardware failure or loosening. No lytic or blastic bony lesions. No obvious muscle pulse. Soft tissues: There is a 4.5 x 4.3 cm cystic ovarian lesion off the right adnexa. This is consistent with a cystic neoplasm of the right ovary. No lymphadenopathy. No free air or free fluid. IMPRESSION: 1. Bilateral hip arthroplasties. 2. No acute abnormalities. 3. 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 Comment: Suggest gynecological consultation. Dictated by: James Dickson M.D. on 09/24/2018 at 9:35 Approved by: James Dickson M.D. on 09/24/2018 at 9:41
== END ==
PROVIDERS: Family Provider Nurse Practitioner Family; PCP Nurse Practitioner Family; Visit Provider Physician Assistant
DX: M25.551 Pain in right hip (principal); N83.201 Unspecified ovarian cyst, right side; Z96.643 Presence of artificial hip joint, bilateral
CPT/HCPCS: 72192

== ENCOUNTER → 2018-09-25 12:09 | Outpatient (CLI) | payer OTHER, MEDICAID, SELFPAY ==
[2018-02-25 13:17] VITALS: BMI 40.3
--- NOTE | 2018-09-25 12:16 | DI.US.S_ITS ---
PROCEDURE: US PELVIC COMPLETE INDICATIONS: CYSTIC OVARIAN LESION OFF THE RIGHT ADNEXA SEEN ON CT SCAN TECHNIQUE: Real-time scanning was performed of the pelvic organs, with image documentation. Additional endovaginal scanning was necessary due to incomplete visualization of the adnexal and endometrial structures by transabdominal scanning. COMPARISON: [facility], US, ABDOMEN COMPLETE, 09/20/2015, 12:48. [facility], US, ABDOMEN COMPLETE, 06/27/2011, 8:21. [facility], US, ABDOMEN COMPLETE, 09/08/2008, 8:54. [facility], CT, ABDOMEN WITH CONTRAST, 12/15/2013, 11:08. [facility], CT, CT PEL WO CON, 09/23/2018, 16:36. FINDINGS: Transabdominal scanning: Limited scanning through the kidneys shows no hydronephrosis. No pathologic free abdominal or pelvic fluid. Endovaginal scanning: Uterus: Uterus is atrophic measuring 4.7 x 2.4 x 3.2 cm. The endometrium measures 3 mm in combined thickness. A nabothian cyst is noted. There are calcific foci in myometrium. Ovaries: There is a 4.2 x 2.6 x 4.2 cm thin-walled cystic mass in the right adnexa. No normal ovarian tissues are visualized on either side. There is a large large complex cyst entricular left kidney with fluid fluid level measuring 5.4 cm, partially visualized. IMPRESSION: 1. A 4.2 x 2.6 x 4.2 cm thin-walled cystic mass in the right adnexa. Normal ovaries are not identified on either side. 2. Atrophic uterus. 3. A large complex cyst is noted below the left kidney, which demonstrates a fluid-fluid level. This is partially visualized. Dictated by: Beth Sullivan M.D. on 09/25/2018 at 16:12 Approved by: Beth Sullivan M.D. on 09/25/2018 at 16:20
[2018-09-25 16:44] LABS: Cancer Antigen 125 < 6 U/mL (0-35)
== END ==
PROVIDERS: PCP Nurse Practitioner Family; Visit Provider Obstetrics & Gynecology
DX: N83.201 Unspecified ovarian cyst, right side (principal)
CPT/HCPCS: 36415; 76830; 76856; 86304

== ENCOUNTER 2018-11-14 08:42 | Day surgery (SDC) | payer OTHER, MEDICAID, SELFPAY ==
[2018-02-25 13:17] VITALS: BMI 40.3
[2018-11-05 09:43] VITALS: BMI 40.3
[2018-11-14] VITALS (9 sets, daily range): BP systolic 115–147; BP diastolic 69–88; PULSE 55–71; RESP 11–18; TEMP 36–36.3; O2SAT 79–99; BMI 40.5
--- NOTE | 2018-11-14 | PATH_ITS ---
Note [facility] Accession Number: [id number] TESTS RESULT FLAG UNITS REF RANGE LAB Clinician Provided Cytology Information No. of containers..01 ThinPrep Vial 01 R OVARIAN CYST FLUID DIAGNOSIS: 02 RIGHT OVARY CYST FLUID NEGATIVE FOR MALIGNANT CELLS. Pathologist ICD10: 02 N83.201 Ashleigh Cavanaugh MD, Pathologist NPI- [id number] Hay Li, Clothing Worker ([facility]) 01 35 CC, YELLOW, CLEAR /LCS FLAG LEGEND: L-Low Normal,H-High Normal,LL-Alert Low,HH-Alert High <-Panic Low,>-Panic High,A-Abnormal,AA-Critical Abnormal Performed at: 01 =Z [facility] [address], [place] [address] Raf Mary MD, 02 LCLWA [facility] [address] [place] [id number] Ashleigh Cavanaugh MD, Performed at: 01 [facility] [address], [place], [place] [id number] MD Raf Mary MD Phone: [phone]
[2018-11-14] MEDS: LACTATED RINGERS 1,000 ML 42 ML IV (09:19)
[2018-11-14] MEDS: SCOPOLAMINE 1 PATCH TOP (10:04)
--- NOTE | 2018-11-14 10:17 | PM.PREOP ---
Pre-operative Note Interval Note History & Physical reviewed/Exam performed by Physician: Yes Changes to H&P: No
--- NOTE | 2018-11-14 10:20 | P.HP_ITS ---
History of Present Illness Date Patient Seen: 11/14/18 Time Patient Seen: 10:17 Chief complaint: [id number] Narrative: Patient is a 67-year-old with a right ovarian mass here for laparoscopic bilateral salpingo oophorectomy Patient History Medical History (Updated 11/14/18 @ 09:01 by Racquel Johnson RN) Impaired vision (Acute) Seasonal allergies (Acute) Takotsubo cardiomyopathy (Acute ~2017) Vertigo (Acute) Vestibular neuritis (Acute) Anxiety (Acute) Arthritis (Acute) Asthma (Acute) Depression (Acute) Eczema (Acute) Fatty liver (Acute) Glucose intolerance (Acute) Gout (Acute) HTN (hypertension) (Acute) Hyperlipidemia (Acute) Osteoarthritis (Acute) Palpitations (Acute) Rosacea (Acute) Sleep apnea (Acute) TIA (transient ischemic attack) (Acute) Surgical History (Updated 11/14/18 @ 08:59 by Racquel Johnson RN) History of total knee arthroplasty (Acute) History of arthroplasty of right shoulder (Acute) History of section (Acute) History of tonsillectomy (Acute) History of total left hip arthroplasty (Acute) History of total right hip arthroplasty (Acute) Hx of cholecystectomy (Acute) S/P left unicompartmental knee replacement (Acute) Status post wrist surgery (Acute) Family History (Updated 09/13/16 @ 00:00 by Conversion Provider) Brother Age: 72 Hypertension High cholesterol Mental health problem Father Cancer Heart disease Hypertension High cholesterol Stroke Mother Age: 96 Cancer High cholesterol TIA (transient ischemic attack) Sister Age: 63 Hypertension High cholesterol Sister Age: 60 Cancer Hypertension High cholesterol Social History household members: none Smoking Status: Never smoker alcohol intake: current Family & Social History Family History (Updated 09/13/16 @ 00:00 by Conversion Provider) Brother Age: 72 Hypertension High cholesterol Mental health problem Father Cancer Heart disease Hypertension High cholesterol Stroke Mother Age: 96 Cancer High cholesterol TIA (transient ischemic attack) Sister Age: 63 Hypertension High cholesterol Sister Age: 60 Cancer Hypertension High cholesterol Social History: household members none Prior Living Arrangements House Safety & Behavioral: Feels Safe in Current Yes Environment Been Physically Hurt or No Threatened By a Person Suicidal Ideation Description None Suicide Plan Description No Plan Tobacco & Substance use: Smoking Status Never smoker alcohol intake current alcohol intake frequency a few times a month Substance Use Type does not use Meds Home Medications Medication Instructions Recorded Confirmed Type furosemide [Lasix] 10 mg PO QDAY #0 04/01/17 11/14/18 History albuterol sulfate [Ventolin HFA] 2 puff INH Q4H PRN 02/13/18 11/14/18 History buspirone 15 mg PO BEDTIME 02/13/18 11/14/18 History lisinopril 10 mg PO BEDTIME 02/13/18 11/14/18 History phentermine 15 mg PO QAM 02/13/18 11/14/18 History topiramate 50 mg PO BID 02/13/18 11/14/18 History Disabled Parking Permit 1 ea MISCELLANEOUS DIRECTED 02/25/18 11/14/18 History aspirin 81 mg PO BID #60 tab 02/27/18 11/14/18 Rx oxycodone 5 mg PO Q3H PRN #60 tab 02/27/18 11/14/18 Rx valacyclovir 500 mg tablet 400 mg PO BID 10/28/18 11/14/18 History citalopram 30 mg PO DAILY 11/14/18 11/14/18 History Allergies Allergy/AdvReac Type Severity Reaction Status Date / Time theophylline Allergy Severe ANGIOEDEMA Verified 11/14/18 09:01 adhesive tape Allergy Intermediate Rash Verified 11/14/18 09:01 Exam Vital Signs (past 8 hours): - 11/14/18 09:21 Temperature 97.0 F L Pulse Rate 61 Respiratory Rate 16 Blood Pressure 147/88 H Pulse Oximetry 99 Oxygen Delivery Method Room Air Narrative Exam Narrative: HEENT: No thyromegaly, no anterior cervical or supraclavicular lymphadenopathy. Lungs:Clear to auscultation bilaterally, no wheezes. Cardiovascular: Regular rate and rhythm, no murmurs, rubs, or gallops. Abdomen: Well-healed Pfannenstiel scars. No hepatosplenomegaly. No masses palpable. External genitalia: Normal Vagina: Normal Cervix: Normal Bimanual exam: 8 Week size uterus. Mobile. Rectal: No masses. Ultrasound: Right ovarian mass Assessment & Plan Assessment & Plan narrative: Assessment: 67-year-old with a right ovarian mass here for a laparoscopic bilateral salpingo -oophorectomies Plan: The risks, benefits, and alternatives to the procedure were explained to the patient. The risks including bleeding, infection, injury to the bowel, bladder, or ureters. She understands these risks and agrees to proceed. A full PAR-Q was held and consent form was signed.
--- NOTE | 2018-11-14 10:57 | SUR.OPER ---
Lithotomy on padded OR bed. [place] Pad Positioner under torso. Head on pillow, arms padded and tucked at sides. Legs secured in padded yellow fins stirrups.
[2018-11-14] MEDS: BUPIVACAINE 0.5% W/ EPI (PF) VIAL 20 ML INJ (11:08)
[2018-11-14] MEDS: KETOROLAC 30 MG/ML VIAL IV (12:15)
[2018-11-14] MEDS: fentaNYL 100 MCG/2 ML INJ 50 MCG IV (12:19)
[2018-11-14] MEDS: OXYCODONE/ACETAMINOPHEN 5/325 TABLET 1 TAB PO (13:01)
--- NOTE | 2018-11-17 07:27 | P.OP_ITS ---
Operative Date/Time/Diagnoses Date of procedure: 11/14/18 Time of procedure: 11:00 Pre-op diagnosis: 8 cm right ovarian cyst Post-op diagnosis: same Procedure: Procedures Operation Date: 11/14/18 09:45 Actual Procedures Side Surgeon p Laparoscopic bilateral Salpingoophorectomy, with removal of right ovarian mass Bilateral Marichuy Quintero MD Indications: 8 cm right ovarian cyst Surgeon: Marichuy Quintero Anesthesia Type: General Operative Notes Findings: 8 cm right ovarian cyst Normal tubes bilaterally Normal left ovary Omental to anterior abdominal wall adhesions near the liver Normal liver Uterus adhesed to the right ovary and sidewall Closure Type: primary Specimen(s): left tube & ovary, right tube & ovary and other (Fluid from right ovarian cyst) Applied: catheter Estimated blood loss (mL): 5 Blood products transfused: none Procedure in detail: After informed consent was obtained, the patient was taken to the operating room where she was placed in the dorsal supine position. After adequate general endotracheal anesthesia was achieved, she was placed in the dorsal lithotomy position, and prepped and draped in the usual sterile fashion. a time-out was performed. A bivalve speculum was placed into the vagina and the anterior lip of the cervix grasped with a single-tooth tenaculum. Cervical os was attempted to be dilated but was stenotic. A decision was made to skip the Zumi uterine manipulator. The single-tooth tenaculum was removed from the anterior lip of the cervix. The bivalve speculum was removed from the vagina. A moistened sponge stick was placed into the vagina. Attention was then turned to the abdomen where 6 cc of 0.5% Marcaine with epinephrine were injected in the umbilical fold. A 5 mm incision was made. The Veress needle was placed into the peritoneal cavity, and its placement confirmed by aspiration and drop test. The abdominal cavity was insufflated with 3.8 L of CO2. The Veress needle was removed, and a 5 mm trocar was placed without difficulty. two other incisions were made 4 cm lateral to the midline just below the umbilical line and two 5 mm trocars were placed under direct visualization. the right tube and ovary were grasped with an atraumatic grasper. Using the point aspirated earlier, approximately 120 cc of fluid was aspirated from the right ovarian cyst. The ovary and tube were then regrasped. The Endo kathi were used to take down adhesions with care to avoid the ureter. The PlasmaKinetic was used to cauterize and cut the infundibulopelvic ligament on the right side. The ovary was also adhesed to the uterus and the PlasmaKinetic was used to cauterize between the uterus and the right ovary. Hemostasis was achieved. The right tube and ovary were placed into anterior cul-de-sac. the left tube and ovary were grasped with an atraumatic grasper. Using the PlasmaKinetic was settings of 40 w the infundibulopelvic ligament on the left side was cauterized and cut. The left tube and ovary were placed into the anterior cul-de-sac. The 5 mm trocar was removed from the umbilicus and the incision was extended to 10 mm. A 10 mm trocar was placed and the endobag was placed through the trocar. Both tubes and ovaries were placed into the endobag and these were removed through the umbilical incision. the pelvis was irrigated and there was no bleeding noted. The instruments were removed from the abdomen. The CO2 was allowed to escape. The moistened sponge stick was removed from the vagina. The umbilical incision was closed on the fascia with 0 Vicryl. all of the incisions were closed on the skin with 4 0 undyed Vicryl in a subcuticular fashion. Steri- Strips, 2 x 2, and op site were placed. the moistened sponge stick was removed from the vagina. Sponge, lap, and instrument counts were correct x2. The patient tolerated the procedure well, and was taken to PACU in stable condition Complications: none Post-operative Condition: stable Disposition: PACU Plan for aftercare: Home after recovery
--- NOTE | 2018-11-26 | PATH_ITS ---
[facility] Accession Number: [id number] . 01 Material submitted: . FALLOPIAN TUBE/OVARY - BILATERAL FALLOPIAN TUBES AND OVARIES . 02 Diagnosis: Bilateral Fallopian Tubes and Ovaries, Bilateral Oophorectomy and Salpingectomy: Ovary with benign serous cystadenoma. Contralateral ovary with no diagnostic abnormality. Bilateral fimbriated fallopian tubes with simple benign paratubal cysts. Negative for malignancy. MRV/11/19/2018 . 02 Electronically signed: . Jamari Kelly MD, PhD, Pathologist NPI- [id number] . 01 Gross description: . Received in formalin, labeled bilateral fallopian tubes and ovaries, is a ruptured cystic ovary (3.2 x 3.0 x 1.0 cm) with an attached fimbriated fallopian tube (length-2.6 cm, diameter-0.3 cm), and ovary (2.1 x 1.2 x 0.5 cm) and a detached fimbriated fallopian tube (length-2.5 cm, diameter-0.3 cm). The ovaries have valenzuela-terry bosselated, focally flat serosa. The cystic ovary has minimal amount of normal ovarian parenchyma identified. The separate ovary has terry-white solid firm parenchyma with corpus albicans identified. The fallopian tubes have terry-valenzuela, smooth shiny serosa and terry unremarkable lumens. Section code: (A1, A2) cystic ovary, accounts payable representative serial sections; (A3) separate ovary, accounts payable representative serial sections; (A4) attached fallopian tube, serially sectioned, entirely submitted; (A5) attached fimbria, bivalved, entirely submitted; (A6) detached fallopian tube, accounts payable representative serial sections; (A7) detached fimbria, bivalved, entirely submitted. ([id number]) /MRV . 02 Pathologist provided ICD-10: D27.9 . 02 CPT . 485675 Specimen Comment: A duplicate report has been generated due to demographic updates. Performed at: 01 [facility] [address] [id number] MD Raf Mary MD Phone: [phone] Performed at: 02 [facility] [address] [place], [place] [id number] MD Ashleigh Cavanaugh MD Phone: [phone]
== END 2018-11-14 13:53 | disposition home or self-care (01) ==
PROVIDERS: PCP Nurse Practitioner Family; Visit Provider Obstetrics & Gynecology
PROC: 0UT24ZZ Resection of Bilateral Ovaries, Percutaneous Endoscopic Approach (ICD-10-PCS; CPT 58661; principal; 2018-11-14 09:45)
DX: N83.201 Unspecified ovarian cyst, right side (principal); I51.81 Takotsubo syndrome; F41.9 Anxiety disorder, unspecified; J45.909 Unspecified asthma, uncomplicated; I10 Essential (primary) hypertension; E78.5 Hyperlipidemia, unspecified; G47.30 Sleep apnea, unspecified
CPT/HCPCS: 58661; J1100; J1885; J2405; J2704; J3010

== ENCOUNTER 2019-06-04 14:41 | Emergency (ER) | payer OTHER, MEDICAID, SELFPAY ==
[2018-02-25 13:17] VITALS: BMI 40.3
[2019-06-04 14:46] VITALS: BP 115/79; PULSE 86; RESP 17; TEMP 36.6; O2SAT 98; BMI 42.1
--- NOTE | 2019-06-04 14:50 | DI.RAD.S_ITS ---
PROCEDURE: XR CHEST 1V INDICATIONS: poss pneumothorax TECHNIQUE: One view of the chest was acquired. COMPARISON: [facility], , CHEST 2 VIEW, 04/22/2015, 22:09. FINDINGS: Surgical changes and devices: None. Lungs and pleura: Lungs are clear. No pleural effusions or pneumothorax. Mediastinum: Mediastinal contours appear normal. Heart size is normal. Bones and chest wall: No suspicious bony lesions. Overlying soft tissues appear unremarkable. Prior right humeral arthroplasty. IMPRESSION: Reduced inspiratory volume, no pneumonia or pneumothorax found. Dictated by: Philip Bernal M.D. on 06/04/2019 at 15:14 Approved by: Philip Bernal M.D. on 06/04/2019 at 15:15
--- NOTE | 2019-06-04 15:20 | PC.NURSE ---
hard to breath today, seen in [place], had xray, sent to er for follow up. pain worsen with taking deep breath.
[2019-06-04 15:21] VITALS: BP 134/62; PULSE 83; RESP 24; O2SAT 98
[2019-06-04 15:28] LABS: BUN Creatinine Ratio 22.2 (6-22); Blood Urea Nitrogen 20 mg/dL (7-17); Calcium 9.6 mg/dL (8.4-10.2); Carbon Dioxide 28 mmol/L (22-32); Chloride 106 mmol/L (98-107); Creatine Kinase 62 U/L (30-135); Estimated Glomerular Filt Rate > 60.0 mL/min (>60); Glucose 122 mg/dL (80-110); HEMOLYSIS 39 (0-50); Magnesium 1.8 mg/dL (1.6-2.3); Potassium 3.8 mmol/L (3.4-5.1); Sodium 142 mmol/L (137-145)
[2019-06-04 15:34] LABS: Add Manual Diff / Slide Review NO; Basophils Absolute Auto 0 /uL (0-100); Basophils Percent Auto 0.3 % (0-2); Eosinophils Absolute Auto 200 /uL (0-450); Eosinophils Percent Auto 2.1 % (2-4); Hematocrit 42.2 % (36-46); Hemoglobin 14.2 g/dL (12.0-16.0); Lymphocytes Absolute Auto 1500 /uL (1100-4500); Mean Corpuscular HGB Conc 33.7 % (30-36); Mean Corpuscular Hemoglobin 32.9 PG (26-34); Mean Corpuscular Volume 97.7 fL (80-100); Monocytes Absolute Auto 900 /uL (0-900); Monocytes Percent Auto 11.6 % (3-14); Neutrophils Absolute Auto 5500 /uL (1500-7000); Platelet Count 250 X10^3/uL (150-400); Red Blood Cell Count 4.32 X10^6/uL (4.0-5.2); Red Cell Distribution Width 13.2 % (11.6-14.8); White Blood Cell Count 8.1 X10^3/uL (4.5-11.0)
[2019-06-04 15:40] LABS: Troponin I < 0.012 ng/mL (0.01-0.034)
[2019-06-04 15:43] LABS: Procalcitonin < 0.05 ng/mL (<0.5)
--- NOTE | 2019-06-04 15:54 | ED_ITS ---
HPI - SOB/Dyspnea General Chief Complaint: Shortness of Breath/Dyspnea Stated Complaint: states tension pnuemo thorax left lung Time Seen by Provider: 06/04/19 14:45 Source: patient Mode of arrival: Ambulatory History of Present Illness HPI Narrative: Patient is a 68-year-old female with increasing shortness of breath. She fell about 2 weeks ago, she says that she actually did not injure anything. She has not had any pain or problems or issues since then. Last evening she noticed some sharp pain on the left side and it was worse whenever she took a deep breath or turned over in bed.. She was seen and evaluated on [place] had a chest x-ray and was told she had a tension pneumo and needed to drive herself to the emergency department. She has pain on the left side. She is more short of breath than she used to be. MD Complaint: shortness of breath Related Data Home Medications Medication Instructions Recorded Confirmed furosemide [Lasix] 10 mg PO QDAY #0 04/01/17 11/27/18 buspirone 15 mg PO BEDTIME 02/13/18 11/27/18 lisinopril 10 mg PO BEDTIME 02/13/18 11/27/18 phentermine 15 mg PO QAM 02/13/18 11/27/18 topiramate 50 mg PO BID 02/13/18 11/27/18 [address]abled [address]ing Permit 1 ea MISCELLANEOUS DIRECTED 02/25/18 11/27/18 valacyclovir 500 mg tablet 400 mg PO BID 10/28/18 11/27/18 aspirin 81 mg PO DAILY 11/14/18 11/27/18 citalopram 30 mg PO DAILY 11/14/18 11/27/18 Previous Rx's Medication Instructions Recorded oxycodone-acetaminophen [Percocet] 1 tab PO Q4-6H PRN #20 tab 11/14/18 hydrocodone-acetaminophen [[place]] 1 tab PO Q6H PRN #10 tab 06/04/19 Allergies Allergy/AdvReac Type Severity Reaction Status Date / Time theophylline Allergy Severe ANGIOEDEMA Verified 06/04/19 14:46 adhesive tape Allergy Intermediate Rash Verified 06/04/19 14:46 Review of Systems Review of Systems Narrative: GENERAL: Denies chills, fatigue, malaise, fever, sweats, travel HEENT: Denies sinus pain, ear pain, sore throat, difficulty swallowing, neck pain RESPIRATORY: See HPI CARDIOVASCULAR: Denies chest pain, palpitations, orthopnea, edema GASTROINTESTINAL: Denies nausea, vomiting, abdominal pain, diarrhea, constipation, melena. : Denies dysuria, frequency, incontinence, hematuria, urinary retention, flank pain. MUSCULOSKELETAL: Denies weakness, joint pain, or bony pain SKIN: No rash, no erythema, no pruritus NEUROLOGIC: Denies weakness, dizziness, headache, numbness, change in speech, confusion PSYCHIATRIC: No concerning psychosocial issues. 12 point review of systems is negative except for those stated above and HPI Patient History Medical History Anxiety (Chronic) Arthritis (Chronic) Asperger's disorder (Chronic) Asthma (Chronic) Chicken pox (Resolved) Depression (Chronic) Eczema (Chronic) Fatty liver (Chronic) Glucose intolerance (Chronic) Gout (Chronic) Herpes (Resolved) HTN (hypertension) (Chronic) Hyperlipidemia (Chronic) Impaired vision (Chronic) Measles (Resolved) Mumps (Resolved) Osteoarthritis (Chronic) Painful menstrual periods (Resolved) Palpitations (Chronic) Rosacea (Chronic) Seasonal allergies (Chronic) Shoulder pain (Chronic) Sleep apnea (Chronic) Takotsubo cardiomyopathy (Chronic ~2016) TIA (transient ischemic attack) (Resolved ~2016) Vertigo (Chronic) Vestibular neuritis (Chronic) Surgical History Anesthesia (Resolved) History of arthroplasty of right shoulder (Resolved) History of section (Resolved ~1979) History of tonsillectomy (Resolved) History of total knee arthroplasty (Chronic) History of total left hip arthroplasty (Resolved) History of total right hip arthroplasty (Resolved) Hx of cholecystectomy (Resolved ~2003) S/P bilateral salpingo-oophorectomy (Resolved 11/14/18) S/P left unicompartmental knee replacement (Resolved) Status post wrist surgery (Resolved) Family History Brother Age: 72 Hypertension High cholesterol Mental health problem Father Cancer Heart disease Hypertension High cholesterol Stroke Mother Age: 96 Cancer High cholesterol TIA (transient ischemic attack) Sister Age: 63 Hypertension High cholesterol Sister Age: 60 Hypertension High cholesterol Breast cancer Social History household members: none Smoking Status: Never smoker alcohol intake: current alcohol intake frequency: holidays/special occasions only Substance Use Type: does not use Exam Initial Vital Signs Initial Vital Signs: Vital Signs Temperature 97.8 F 06/04/19 14:46 Pulse Rate 86 06/04/19 14:46 Respiratory Rate 17 06/04/19 14:46 Blood Pressure 115/79 06/04/19 14:46 Pulse Oximetry 98 06/04/19 14:46 GENERAL: Well-appearing, well-nourished and in no acute distress. HEENT: Head atraumatic,EOMI, pupils reactive, face symmetric, moist mucous membranes CARDIOVASCULAR: Regular rate and rhythm without murmurs, rubs or gallops. RESPIRATORY: Breath sounds equal bilaterally, no wheezes rales or rhonchi. ABDOMEN: Soft, nontender. Normoactive bowel sounds all 4 quadrants. No guarding or rebound. EXTREMITIES: Normal range of motion, no clubbing or edema. Neurovascularly intact NEUROLOGICAL: Alert and oriented x4.Normal gait and speech. Cranial nerves II through XII grossly intact. SKIN: Warm, dry, no laceration, no petechiae, no rashes or lesions. Course Orders Ordered: ED Orders 06/04/19 14:50 XR chest 1V Stat 06/04/19 15:04 B Type Natriuretic Peptide Stat Basic Metabolic Panel Stat Complete Blood Count AUTO DIFF Stat Magnesium Stat Procalcitonin Stat Troponin & CK Cardiac Panel Stat 06/04/19 15:08 Consult to Respiratory Therapy Evaluate & Treat EKG-12 Lead Stat Discontinued Medications Albuterol/Ipratropium (Duoneb) 3 ml INH NOW ONE Stop: 06/04/19 15:09 Last Admin: 06/04/19 15:19 Dose: Not Given Documented by: MEISENB Ketorolac Tromethamine (Toradol) 30 mg IV NOW ONE Stop: 06/04/19 16:26 Last Admin: 06/04/19 16:29 Dose: 30 mg Documented by: MEISENB Methylprednisolone (Solu-Medrol 125 Mg Vial) 125 mg IV NOW ONE Stop: 06/04/19 15:09 Last Admin: 06/04/19 15:20 Dose: Not Given Documented by: DEVONSENB Vital Signs Vital signs: Vital Signs - 8 hr 06/04/19 14:46 06/04/19 15:21 06/04/19 16:17 Temperature 97.8 F Pulse Rate 86 83 78 Respiratory Rate 17 24 13 Blood Pressure 115/79 Blood Pressure [Left Arm] 134/62 Pulse Oximetry 98 98 98 MDM - SOB/Dyspnea Lab Data Attestation: I reviewed the patient's lab results. Result diagrams: 06/04/19 15:04 06/04/19 15:04 Labs: Lab Results 06/04/19 06/04/19 06/04/19 Range/Units 15:04 15:04 15:04 WBC 8.1 (4.5-11.0) X10^3/uL RBC 4.32 (4.0-5.2) X10^6/uL Hgb 14.2 (12.0-16.0) g/dL Hct 42.2 (36-46) % MCV 97.7 (80-100) fL MCH 32.9 (26-34) PG MCHC 33.7 (30-36) % RDW 13.2 (11.6-14.8) % Plt Count 250 (150-400) X10^3/uL Neut % (Auto) 67.0 (50-75) % Lymph % (Auto) 19.0 L (25-40) % [place] % (Auto) 11.6 (3-14) % Eos % (Auto) 2.1 (2-4) % Baso % (Auto) 0.3 (0-2) % Neut # (Auto) 5500 (6817-0916) /uL Lymph # (Auto) 1500 (6828-4368) /uL [place] # (Auto) 900 (0-900) /uL Eos # (Auto) 200 (0-450) /uL Baso # (Auto) 0 (0-100) /uL Sodium 142 (137-145) mmol/L Potassium 3.8 (3.4-5.1) mmol/L Chloride 106 (98-107) mmol/L Carbon Dioxide 28 (22-32) mmol/L BUN 20 H (7-17) mg/dL Creatinine 0.90 (0.52-1.04) mg/dL Estimated GFR > 60.0 (>60) mL/min BUN/Creatinine Ratio 22.2 H (6-22) Glucose 122 H (80-110) mg/dL Calcium 9.6 (8.4-10.2) mg/dL Magnesium 1.8 (1.6-2.3) mg/dL Total Creatine Kinase 62 (30-135) U/L CK-MB (CK-2) TNP CK-MB (CK-2) Rel Index TNP Troponin I < 0.012 (0.01-0.034) ng/mL B-Natriuretic Peptide < 100 (<100) Procalcitonin < 0.05 (<0.5) ng/mL Imaging Data Chest x-ray: Radiologist's impression: PROCEDURE: XR CHEST 1V INDICATIONS: poss pneumothorax TECHNIQUE: One view of the chest was acquired. COMPARISON: [facility], , CHEST 2 VIEW, 04/22/2015, 22:09. FINDINGS: Surgical changes and devices: None. Lungs and pleura: Lungs are clear. No pleural effusions or pneumothorax. Mediastinum: Mediastinal contours appear normal. Heart size is normal. Bones and chest wall: No suspicious bony lesions. Overlying soft tissues appear unremarkable. Prior right humeral arthroplasty. IMPRESSION: Reduced inspiratory volume, no pneumonia or pneumothorax found. Dictated by: Philip Bernal M.D. on 06/04/2019 at 15:14 ECG Data Attestation: I personally reviewed and interpreted this ECG as follows: Prior ECG tracings: not available for review Interpretation: Normal sinus rhythm rate 69 p.r. interval 197 QRS 90 QTC 415 PVC noted T-wave inversion noted in lead [address] elevations or depressions. [facility] Narrative Medical decision making narrative: The patient fell 2 weeks ago and has not had any issues in till suddenly last evening when she rolled over in bed and felt pain. The it hurts every time she breathes or moves. It is reproducible in 1 particular spot. This seems to be musculoskeletal. Chest x-ray does not show any sign of pneumothorax. At this time I do not believe patient to warrant any sort of further imaging. She is given Toradol for pain recommend she take ibuprofen. And return if needed. Discharge Plan Departure Patient Disposition: Home Clinical Impression: Acute costochondritis Discharge Date/Time: 06/04/19 16:35 Instructions: DI for Costochondritis Activity Restrictions/Additional Instructions: *You have been diagnosed with costochondritis *What to do: Sprain between ribs. Recommend splinting and holding with a pillow to help with pain. *Continue to take medications as directed Motrin at 800 mg every 8 hours if needed for agtt-bj-njbxrocq pain [place] 1 tablet every 6 hours if needed for severe pain *Follow up with your primary care provider in 2-3 days *Return to ER if you should have increased pain shortness of breath difficulty breathing or any new, worsening or concerning symptoms CONTROLLED SUBSTANCE DISCHARGE (Narcotoic/benzodiazepine/Flexeril/Phenergan) 1. You have been prescribed narcotic medications, it does have acetaminophen/Tylenol/paracetamol in it so do not take extra Tylenol or Tylenol containing products 2. Please understand that we cannot provide further refills of narcotics, benzodiazepines or controlled substances through the ED and her pain management will need to be through your provider. 3. While on these medications you cannot drive or operate heavy machinery. 4. You cannot sign legal documents or perform any duties such as this. 5. As long as you're taking opiate pain medications he should also be taking a stool softener such as Colace, Dulcolax, MiraLAX or prune juice, to help avoid constipation. Prescriptions: New hydrocodone-acetaminophen [[place]] 5-325 mg tablet 1 tab PO Q6H PRN (Reason: pain) Qty: 10 RF: 0 No Action furosemide [Lasix] 20 MG tablet 10 mg PO QDAY Qty: 0 RF: 0 valacyclovir 500 mg tablet 400 mg PO BID RF: 0 citalopram 10 mg Tablet 30 mg PO DAILY RF: 0 oxycodone-acetaminophen [Percocet] 5-325 mg tablet 1 tab PO Q4-6H PRN (Reason: pain) Qty: 20 RF: 0 aspirin 81 mg tablet,delayed release (DR/EC) 81 mg PO DAILY RF: 0 phentermine 15 mg Capsule 15 mg PO QAM RF: 0 topiramate 50 mg Tablet 50 mg PO BID RF: 0 buspirone 5 MG tablet 15 mg PO BEDTIME RF: 0 lisinopril 10 MG tablet 10 mg PO BEDTIME RF: 0 Disabled Parking Permit 1 ea miscellaneous DIRECTED RF: 0 Referrals: Cyndee Mancini ARNP [Primary Care Provider] -
[2019-06-04 16:02] LABS: B Type Natriuretic Peptide < 100 (<100)
[2019-06-04 16:17] VITALS: PULSE 78; RESP 13; O2SAT 98
[2019-06-04] MEDS: KETOROLAC 60 MG/2 ML VIAL 30 MG IV (16:29)
== END 2019-06-04 16:35 | disposition home or self-care (01) ==
PROVIDERS: Emergency Provider Emergency Medicine; PCP Nurse Practitioner Family
DX: M94.0 Chondrocostal junction syndrome [Tietze] (principal)
CPT/HCPCS: 36415; 71045; 80048; 82550; 83735; 83880; 84145; 84484; 85025; 93005; 96374; 96375; 99283; 99285; J1885

== ENCOUNTER 2021-07-19 11:56 | Emergency (ER) | payer MEDICARE, MEDICAID, SELFPAY ==
[2021-07-19] VITALS (10 sets, daily range): BP systolic 141–167; BP diastolic 68–82; PULSE 63–73; RESP 17–31; O2SAT 94–95; BMI 40.3; BMI 48.4
--- NOTE | 2021-07-19 12:26 | DI.CT.S_ITS ---
PROCEDURE: CT ANGIO CHEST PE PROTOCOL INDICATIONS: CP, SOB, hypoxia TECHNIQUE: After the administration of intravenous contrast, 2 mm thick sections acquired from the pulmonary apices to the posterior costophrenic angles. 3-dimensional maximum intensity projection (MIP) coronal and sagittal reformats were then acquired through the thorax. For radiation dose reduction, the following was used: automated exposure control, adjustment of mA and/or kV according to patient size. COMPARISON: None. FINDINGS: Image quality: Excellent. Pulmonary arteries: Pulmonary arteries are normal in size, and demonstrate no intraluminal filling defects to suggest central pulmonary embolism. Lungs and pleura: No evidence of pneumonia or edema. Calcified granuloma within the right posteromedial lung base. No pleural effusions or pneumothorax. Central and peripheral airways are patent. Mediastinum: Heart size is normal, without pericardial effusion. No mediastinal or hilar adenopathy. Thoracic aorta is normal in caliber and enhancement. Esophagus is normal in caliber, without hiatal hernia. Bones and chest wall: No suspicious bony lesions. Ribs and thoracic spine appear intact throughout. Thyroid gland is grossly unremarkable. No axillary or supraclavicular adenopathy. Abdomen: Visualized portions of the upper abdomen demonstrate diffusely decreased hepatic density, and are otherwise unremarkable. IMPRESSION: 1. No acute process. 2. No pulmonary embolus. 3. Hepatic steatosis. Dictated by: Omi Blackman M.D. on 07/19/2021 at 14:04 Approved by: Omi Blackman M.D. on 07/19/2021 at 14:13
[2021-07-19] MEDS: SODIUM CHLORIDE 0.9% 1,000 ML 150 ML IV (12:50)
--- NOTE | 2021-07-19 12:56 | ED_ITS ---
HPI - SOB/Dyspnea General Chief Complaint: Shortness of Breath/Dyspnea Stated Complaint: SOB Time Seen by Provider: 07/19/21 12:23 Source: patient Mode of arrival: Ambulatory Limitations: no limitations History of Present Illness HPI Narrative: 70-year-old female nonsmoker with history of hypertension and asthma presents at the request of her primary care provider for evaluation of increasing shortness of breath and fatigue. Patient states that for at least the past few weeks she has noticed exertional dyspnea and feels more short of breath when lying flat. She denies any recent travel, chest pain or lower extremity pain. She has had decreased activity for the past year or 2 and has had a complex medical history in the aftermath of an on diagnosed viral infection in 2019 which is made her progressively weak. She has had extensive workup with Neurology and thus far no answers. Part of her evaluation from her primary care provider included a critically elevated D-dimer. The patient was sent here for further evaluation, most likely a CT angiogram for PE. Related Data Home Medications Medication Instructions Recorded Confirmed furosemide 20 mg tablet (Lasix) 10 mg PO QDAY #0 04/01/17 11/27/18 buspirone 5 mg tablet 15 mg PO BEDTIME 02/13/18 11/27/18 lisinopril 10 mg tablet 10 mg PO BEDTIME 02/13/18 11/27/18 phentermine 15 mg capsule 15 mg PO QAM 02/13/18 11/27/18 topiramate 50 mg tablet 50 mg PO BID 02/13/18 11/27/18 Disabled [address]ing Permit 1 ea MISCELLANEOUS DIRECTED 02/25/18 11/27/18 valacyclovir 500 mg tablet 400 mg PO BID 10/28/18 11/27/18 aspirin 81 mg tablet,delayed 81 mg PO DAILY 11/14/18 11/27/18 release citalopram 10 mg tablet 30 mg PO DAILY 11/14/18 11/27/18 Previous Rx's Medication Instructions Recorded oxycodone-acetaminophen 5 mg-325 1 tab PO Q4-6H PRN #20 tab 11/14/18 mg tablet (Percocet) hydrocodone 5 mg-acetaminophen 325 1 tab PO Q6H PRN #10 tab 06/04/19 mg tablet ([place]) Allergies Allergy/AdvReac Type Severity Reaction Status Date / Time theophylline Allergy Severe ANGIOEDEMA Verified 06/04/19 14:46 adhesive tape Allergy Intermediate Rash Verified 06/04/19 14:46 Review of Systems Review of Systems Narrative: GENERAL: See HPI HEENT: Denies sinus pain, ear pain, sore throat, difficulty swallowing, dizziness. RESPIRATORY: See HPI CARDIOVASCULAR: Denies chest pain, palpitations, orthopnea, edema, GASTROINTESTINAL: Denies nausea, vomiting, abdominal pain, diarrhea, constipation, melena. : Denies dysuria, frequency, incontinence, hematuria, urinary retention. MUSCULOSKELETAL: denies weakness, joint pain, or bony pain SKIN: Denies rash, skin lesions, or other NEUROLOGIC: Denies weakness, headache, numbness, change in speech, confusion, seizures, incoordination. PSYCHIATRIC: No concerning psychosocial issues. 12 point review of systems is negative except for those stated above Patient History Medical History (Updated 07/19/21 @ 14:41 by Bubba Tirado DO) Anxiety Arthritis Asperger's disorder Asthma Chicken pox Depression Eczema Fatty liver Glucose intolerance Gout Herpes HTN (hypertension) Hyperlipidemia Impaired vision Measles Mumps Osteoarthritis Painful menstrual periods Palpitations Rosacea Seasonal allergies Shoulder pain Sleep apnea Takotsubo cardiomyopathy (~2016) TIA (transient ischemic attack) (~2016) Vertigo Vestibular neuritis Surgical History Anesthesia History of arthroplasty of right shoulder History of section (~1979) History of tonsillectomy History of total knee arthroplasty History of total left hip arthroplasty History of total right hip arthroplasty Hx of cholecystectomy (~2003) S/P bilateral salpingo-oophorectomy (11/14/18) S/P left unicompartmental knee replacement Status post wrist surgery Family History Brother Age: 74 Hypertension High cholesterol Mental health problem Father Cancer Heart disease Hypertension High cholesterol Stroke Mother Age: 98 Cancer High cholesterol TIA (transient ischemic attack) Sister Age: 65 Hypertension High cholesterol Sister Age: 62 Hypertension High cholesterol Breast cancer Social History household members: none Smoking Status: Never smoker alcohol intake: current Smoking Status: Never smoker alcohol intake frequency: holidays/special occasions only Substance Use Type: does not use Exam Narrative Exam Narrative: GENERAL: [70] year old patient appears stated age. Well-developed patient, in mild distress. HEAD: Atraumatic. Normocephalic. EYES: Pupils equal round and reactive. Extraocular motions intact. No scleral icterus. No injection or drainage. ENT: Nose without bleeding, purulent drainage. Throat without erythema, tonsillar hypertrophy or exudate. Airway patent. NECK: Trachea midline. Non tender CARDIOVASCULAR: Regular rate and rhythm without murmurs, gallops, or rubs. RESPIRATORY: Clear to auscultation. Breath sounds equal bilaterally. No wheezes, rales, or rhonchi. GASTROINTESTINAL: Abdomen soft, non-tender, nondistended. EXTREMITIES: No edema or joint tenderness. BACK: Nontender without deformity or crepitance. No flank tenderness. NEURO: AOx3. SKIN: No rash or erythema of visible areas Initial Vital Signs Initial Vital Signs: Vital Signs Pulse Rate 70 07/19/21 12:06 Respiratory Rate 18 07/19/21 12:06 Blood Pressure 161/78 H 07/19/21 12:06 Pulse Oximetry 95 07/19/21 12:06 Course Orders Ordered: ED Orders 07/19/21 12:24 Procalcitonin Stat 07/19/21 12:25 Consult to Respiratory Therapy Evaluate & Treat Complete Blood Count AUTO DIFF Stat Comprehensive Metabolic Panel Stat Lactate (Lactic Acid) Stat Magnesium Stat Troponin & CK Cardiac Panel Stat 07/19/21 12:26 CT angio chest PE protocol Stat 07/19/21 12:53 EKG-12 Lead Stat 07/19/21 14:12 Urine Culture Stat Urine Microscopic Stat Sodium Chloride (Normal Saline 0.9%) 1,000 mls @ 150 mls/hr IV CONT ANNI Last Admin: 07/19/21 12:50 Dose: 150 mls/hr Documented by: [email or web address] Vital Signs Vital signs: Vital Signs - 8 hr 07/19/21 12:06 07/19/21 12:36 07/19/21 12:37 Pulse Rate 70 67 68 Respiratory Rate 18 28 H 31 H Blood Pressure 161/78 H 167/81 H Pulse Oximetry 95 95 94 07/19/21 13:00 07/19/21 13:01 Pulse Rate 63 63 Respiratory Rate 19 21 Blood Pressure 145/82 H Pulse Oximetry 95 94 MDM - SOB/Dyspnea Lab Data Result diagrams: 07/19/21 12:25 07/19/21 12:25 Labs: Lab Results 07/19/21 07/19/21 07/19/21 Range/Units 12:24 12:25 12:25 WBC 7.2 (4.5-11.0) X10^3/uL RBC 4.11 (4.0-5.2) X10^6/uL Hgb 14.0 (12.0-16.0) g/dL Hct 41.3 (36-46) % MCV 100.3 H (80-100) fL MCH 34.1 H (26-34) PG MCHC 34.0 (30-36) % RDW 13.4 (11.6-14.8) % Plt Count 209 (150-400) X10^3/uL Neut % (Auto) 63.5 (50-75) % Lymph % (Auto) 24.1 L (25-40) % [place] % (Auto) 8.9 (3-14) % Eos % (Auto) 2.9 (2-4) % Baso % (Auto) 0.6 (0-2) % Neut # (Auto) 4600 (4707-8690) /uL Lymph # (Auto) 1700 (6622-2578) /uL [place] # (Auto) 600 (0-900) /uL Eos # (Auto) 200 (0-450) /uL Baso # (Auto) 0 (0-100) /uL Sodium 140 (137-145) mmol/L Potassium 4.5 (3.4-5.1) mmol/L Chloride 105 (98-107) mmol/L Carbon Dioxide 31 (22-32) mmol/L BUN 20 H (7-17) mg/dL Creatinine 0.67 (0.52-1.04) mg/dL Estimated GFR > 60.0 (>60) mL/min BUN/Creatinine Ratio 29.9 H (6-22) Glucose 175 H (80-110) mg/dL Lactate (0.7-2.1) mmol/L Calcium 9.3 (8.4-10.2) mg/dL Magnesium 1.9 (1.6-2.3) mg/dL Total Bilirubin 0.6 (0.2-1.3) mg/dL AST 44 H (14-36) IU/L ALT 40 H (<35) IU/L Alkaline Phosphatase 71 (38-126) U/L Total Creatine Kinase 71 (30-135) U/L CK-MB (CK-2) TNP CK-MB (CK-2) Rel Index TNP Troponin I < 0.012 (0.01-0.034) ng/mL Total Protein 7.7 (6.3-8.2) g/dL Albumin 4.5 (3.5-5.0) g/dL Globulin 3.2 (1.7-4.1) g/dL Albumin/Globulin Ratio 1.4 (1.0-2.8) Procalcitonin 0.11 (<0.5) ng/mL Urine RBC (0-5/HPF) Urine WBC (0-5/HPF) Ur Squamous Epith Cells (0-5/HPF) Ur Renal Epithelial Cell (0-1/HPF) Urine Bacteria (None) Ur Culture Indicated? 07/19/21 07/19/21 Range/Units 12:25 14:12 WBC (4.5-11.0) X10^3/uL RBC (4.0-5.2) X10^6/uL Hgb (12.0-16.0) g/dL Hct (36-46) % MCV (80-100) fL MCH (26-34) PG MCHC (30-36) % RDW (11.6-14.8) % Plt Count (150-400) X10^3/uL Neut % (Auto) (50-75) % Lymph % (Auto) (25-40) % [place] % (Auto) (3-14) % Eos % (Auto) (2-4) % Baso % (Auto) (0-2) % Neut # (Auto) (2362-7691) /uL Lymph # (Auto) (4165-1097) /uL [place] # (Auto) (0-900) /uL Eos # (Auto) (0-450) /uL Baso # (Auto) (0-100) /uL Sodium (137-145) mmol/L Potassium (3.4-5.1) mmol/L Chloride (98-107) mmol/L Carbon Dioxide (22-32) mmol/L BUN (7-17) mg/dL Creatinine (0.52-1.04) mg/dL Estimated GFR (>60) mL/min BUN/Creatinine Ratio (6-22) Glucose (80-110) mg/dL Lactate 1.7 (0.7-2.1) mmol/L Calcium (8.4-10.2) mg/dL Magnesium (1.6-2.3) mg/dL Total Bilirubin (0.2-1.3) mg/dL AST (14-36) IU/L ALT (<35) IU/L Alkaline Phosphatase (38-126) U/L Total Creatine Kinase (30-135) U/L CK-MB (CK-2) CK-MB (CK-2) Rel Index Troponin I (0.01-0.034) ng/mL Total Protein (6.3-8.2) g/dL Albumin (3.5-5.0) g/dL Globulin (1.7-4.1) g/dL Albumin/Globulin Ratio (1.0-2.8) Procalcitonin (<0.5) ng/mL Urine RBC None seen (0-5/HPF) Urine WBC 5-10/hpf H (0-5/HPF) Ur Squamous Epith Cells 0-1 /hpf (0-5/HPF) Ur Renal Epithelial Cell 1-5/hpf H (0-1/HPF) Urine Bacteria Few (2-10) H (None) Ur Culture Indicated? Specimen cultured Urine Dip Bedside Urine Glucose Negative Bedside Urine Bilirubin - Negative Bedside Urine Ketone - Negative Urine Specific Ferguson 1.020 Bedside Urine Occult Blood +/- Bedside Urine pH 5.5 Bedside Urine Protein - Negative Bedside Urine Urobilinogen - Negative Bedside Urine Nitrite + Positive Bedside Urine Leukocytes +/- [address] scan - chest: Radiologist's Impression: Chart Viewer Diagnostics Subcategory All Activity ??:?? All Time ??:?? All Subcategories Filter Laboratory Imaging Microbiology Pathology Blood Bank Tests Cardiovascular Other Specialty DATE TYPE STATUS REF RANGE/AUTHOR Hx Today 12:26 Chest CTA Signed Omi Blackman 06/04/19 14:50 Chest X-Ray Signed Philip Bernal 09/25/18 12:16 Pelvis Ultrasound Signed Joe Sullivan 09/23/18 16:[address] Addendum James Dickson 05/03/18 00:00 Mammogram Screening Signed Danielle Cohn 02/25/18 06:30 Knee X-Ray Signed Josef Preston 01/09/18 00:00 Knee MRI Signed HiralYohanastanley 12/26/17 09:38 Outside EKG ? 03/25/17 11:10 Outside EKG ? Woman ,[place] [facility] 70, F?1950 MRN#? [id number] REG ER,?Main ED??R04?? 167.64cm 136.078kg BMI: 48.4kg/m? Shortness of Breath/Dyspnea Acc#? [id number] Resus Status Not Ordered Hx Avail Special Indicators No Data to Display Home Meds Not Confirmed Prescription Monitoring Program MEDICATIONS (INSTRUCTIONS) LAST TAKEN Active ??aspirin ??81 mgPODAILY ??buspirone ??15 mgPOBEDTIME ??citalopram ??30 mgPODAILY ??Disabled Parking Permit ??1 eaMISCELLANEOUSAS DIRECTED ??furosemide [Lasix] ??10 mgPOQDAY#0 ??hydrocodone-acetaminophen [[place]] ??1 [id number]#10 tab *Product no longer available ??lisinopril ??10 mgPOBEDTIME ??oxycodone-acetaminophen [Percocet] ??1 tabPOQ4-6HPRN#20 tab ??phentermine ??15 mgPOQAM ??topiramate ??50 mgPOBID ??valacyclovir 500 mg tablet ??400 mgPOBID ?Not Included in Conflicts Allergies theophylline ANGIOEDEMA adhesive tape Rash Problems External Data Available ? ONSET Acute parotitis Low back pain 11/29/10 Transient cerebral ischemia 06/21/15 Essential hypertension 07/14/15 Impaired glucose tolerance 07/14/15 Mixed hyperlipidemia 07/14/15 Moderate episode of recurrent major depressive disorder 07/20/15 Primary osteoarthritis of both knees 07/20/15 Primary osteoarthritis of left hip 10/21/15 Psoriasis 01/30/16 Right wrist pain 02/22/17 Obesity with body mass index (BMI) of 35.0 to 39.9 without comorbidity 04/01/17 Takayasu's disease 04/01/17 Vital Signs Today 13:01 BP 145/82?H Pulse 63? Resp 21? O2 Sat 94? Diagnostics Reports Woman,[place]??70??F??1950 ? Allergy/Adv: theophylline, adhesive tape (More??) Close Chest CTA (Signed) Omi Blackman - 07/19/21 Chest X-Ray (Signed) Philip Bernal - 06/04/19 Pelvis Ultrasound (Signed) LaurieKatrin watsonyobani - 09/25/[address] (Addendum) Martha Dicksonic - 09/23/18 Mammogram Screening (Signed) SukiTseringDanielle - 05/03/18 Knee X-Ray (Signed) Josef Preston - 02/25/18 Knee MRI (Signed) Omi Blackman - 01/09/18 Outside EKG 12/26/17 Outside EKG 03/25/17 Launch?[place] [address] CT Scan Report Signed Patient: Sameer Dhillon MR#: [id number] : 1950 Acct:[id number] Age/Sex: 70 / F Date of Service: 07/19/21 Loc: ED Accession Number: [id number] ?? Procedure: CT angio chest PE protocol Ordering Provider: Bubba Tirado D.O. PROCEDURE:? CT ANGIO CHEST PE PROTOCOL ? INDICATIONS:? CP, SOB, hypoxia ? TECHNIQUE:? After the administration of intravenous contrast, 2 mm thick sections acquired from the pulmonary apices to the posterior costophrenic angles.? 3-dimensional maximum intensity projection (MIP) coronal and sagittal reformats were then acquired through the thorax.? For radiation dose reduction, the following was used:? automated exposure control, adjustment of mA and/or kV according to patient size.? ? COMPARISON:? None. ? FINDINGS:? Image quality:? Excellent.? ? Pulmonary arteries:? Pulmonary arteries are normal in size, and demonstrate no intraluminal filling defects to suggest central pulmonary embolism.? ? Lungs and pleura:? No evidence of pneumonia or edema.? Calcified granuloma within the right posteromedial lung base.? No pleural effusions or pneumothorax.? Central and peripheral airways are patent.? ? Mediastinum:? Heart size is normal, without pericardial effusion.? No mediastinal or hilar adenopathy.? Thoracic aorta is normal in caliber and enhancement.? Esophagus is normal in caliber, without hiatal hernia.? ? Bones and chest wall:? No suspicious bony lesions.? Ribs and thoracic spine appear intact throughout.? Thyroid gland is grossly unremarkable.? No axillary or supraclavicular adenopathy.? ? Abdomen:? Visualized portions of the upper abdomen demonstrate diffusely decreased hepatic density, and are otherwise unremarkable. ? IMPRESSION:? 1. No acute process. 2. No pulmonary embolus. 3. Hepatic steatosis.? ? ? Dictated by: Omi Blackman M.D. on 07/19/2021 at 14:04 ? ? Approved by: Omi Blackman M.D. on 07/19/2021 at 14:13 ? MDM Narrative Medical decision making narrative: Multiple diagnoses considered including cardiac ischemia which is thought to be unlikely given normal troponin and nonischemic EKG as well as lack of classic symptoms. Pulmonary embolism considered high in the differential given her relatively sedentary lifestyle and critically elevated D-dimer. This and pericardial effusion as well as pneumonia considered less likely given lack of supporting findings on advanced imaging. Other diagnoses considered including heart failure, anemia, renal failure and other electrolyte abnormalities considered less likely given lack of abnormal findings. Patient has no significant work of breathing in the department and does not require supplemental oxygen. There are no diagnoses present which would require specific or immediate intervention. Extensive return precautions given and questions answered to her apparent satisfaction Discharge Plan Departure Patient Disposition: Home Clinical Impression: Acute dyspnea Instructions: DI for Shortness of Breath Activity Restrictions/Additional Instructions: *You have been diagnosed with [acute on chronic dyspnea. Your history, physical exam, labs and CT scan are very reassuring. There is no evidence of blood clot, pneumonia, fluid around your heart or other significant abnormality that would require a specific or immediate treatment *What to do: *Please continue to take your regular medications as directed. [ ] New medication prescriptions sent to your pharmacy: [ ] [ ] New medication written as a paper prescription [x ] No new medications given *Please follow up with your primary care provider in 2-3 days, call for an appointment. Let them know you were seen in the Emergency Department and that we ask that you be seen in follow up. We will electronically transmit a record of mariana henderson's note if your PCP is in our system *If you do not have a primary care provider please contact the [facility] Resource line at [phone]. They will ask some questions about your medical history and help get you set up with a doctor in the community. *Return to Emergency Department if you should have any new, worsening or concerning symptoms, such as [fever greater than 101 F, shaking chills, worsening pain, persistent vomiting or other bothersome symptoms] Prescriptions: No Action furosemide [Lasix] 20 MG tablet 10 mg PO QDAY Qty: 0 0RF valacyclovir 500 mg tablet 400 mg PO BID 0RF citalopram 10 mg Tablet 30 mg PO DAILY 0RF oxycodone-acetaminophen [Percocet] 5-325 mg tablet 1 tab PO Q4-6H PRN (Reason: pain) Qty: 20 0RF aspirin 81 mg tablet,delayed release (DR/EC) 81 mg PO DAILY 0RF phentermine 15 mg Capsule 15 mg PO QAM 0RF topiramate 50 mg Tablet 50 mg PO BID 0RF buspirone 5 MG tablet 15 mg PO BEDTIME 0RF lisinopril 10 MG tablet 10 mg PO BEDTIME 0RF Disabled Parking Permit 1 ea miscellaneous DIRECTED 0RF hydrocodone-acetaminophen [[place]] 5-325 mg tablet 1 tab PO Q6H PRN (Reason: pain) Qty: 10 0RF Referrals: Cyndee Mancini ARNP [Primary Care Provider] -
[2021-07-19 13:00] LABS: Add Manual Diff / Slide Review NO; Basophils Absolute Auto 0 /uL (0-100); Basophils Percent Auto 0.6 % (0-2); Eosinophils Absolute Auto 200 /uL (0-450); Eosinophils Percent Auto 2.9 % (2-4); Hematocrit 41.3 % (36-46); Lymphocytes Absolute Auto 1700 /uL (1100-4500); Lymphocytes Percent Auto 24.1 % (25-40); Mean Corpuscular Hemoglobin 34.1 PG (26-34); Mean Corpuscular Volume 100.3 fL (80-100); Monocytes Absolute Auto 600 /uL (0-900); Monocytes Percent Auto 8.9 % (3-14); Neutrophils Absolute Auto 4600 /uL (1500-7000); Neutrophils Percent Auto 63.5 % (50-75); Platelet Count 209 X10^3/uL (150-400); Red Blood Cell Count 4.11 X10^6/uL (4.0-5.2); Red Cell Distribution Width 13.4 % (11.6-14.8); White Blood Cell Count 7.2 X10^3/uL (4.5-11.0)
[2021-07-19 13:29] LABS: Alanine Aminotransferase 40 IU/L (<35); Albumin 4.5 g/dL (3.5-5.0); Albumin Globulin Ratio 1.4 (1.0-2.8); Alkaline Phosphatase 71 U/L (38-126); Aspartate Aminotransferase 44 IU/L (14-36); BUN Creatinine Ratio 29.9 (6-22); Bilirubin Total 0.6 mg/dL (0.2-1.3); Blood Urea Nitrogen 20 mg/dL (7-17); Calcium 9.3 mg/dL (8.4-10.2); Carbon Dioxide 31 mmol/L (22-32); Chloride 105 mmol/L (98-107); Creatine Kinase 71 U/L (30-135); Estimated Glomerular Filt Rate > 60.0 mL/min (>60); Globulin 3.2 g/dL (1.7-4.1); Glucose 175 mg/dL (80-110); HEMOLYSIS < 15 (0-50); Magnesium 1.9 mg/dL (1.6-2.3); Potassium 4.5 mmol/L (3.4-5.1); Sodium 140 mmol/L (137-145); Total Protein 7.7 g/dL (6.3-8.2)
[2021-07-19 13:31] LABS: Lactate (Lactic Acid) 1.7 mmol/L (0.7-2.1)
[2021-07-19 13:40] LABS: Troponin I < 0.012 ng/mL (0.01-0.034)
[2021-07-19 13:45] LABS: Procalcitonin 0.11 ng/mL (<0.5)
[2021-07-19 14:37] LABS: RBC Urine None Seen (0-5/HPF); Renal Epithelial Cells Urine 1-5/HPF (0-1/HPF); WBC Urine 5-10/HPF (0-5/HPF)
[2021-07-19 14:38] LABS: Bacteria Urine Few (2-10)
[2021-07-19 14:40] LABS: Culture Indicated Urine Specimen Cultured; Squamous Epithelial Cell Urine 0-1 /HPF (0-5/HPF)
--- NOTE | 2021-10-12 14:42 | ONC.MSW ---
Description: New Referral Navigation T/C Reason for Referral: Breast Cancer Activity: Reviewed clinicals and referral for medical status, acuity, and immediate needs. Pt recently had her bx and imaging done at [facility], has not yet had surgery. She resides on [place], is retired. No immediate needs identified. [employer] SCI[employer]IST discussed the ongoing availability of assistance, support, and resource referrals as needed. Discussed the availability of the [facility] medical relief fund, and how it can be used to reimburse for ferry tickets, etc. Provided an overview of what to expect with the first Oncologist visit, and agreed to meet with her prior to the provider visit to offer services card and continue need's assessment. Confirmed a time for 10/19 at 2:20pm.
== END 2021-07-19 15:01 | disposition home or self-care (01) ==
PROVIDERS: Emergency Provider Emergency Medicine; PCP Nurse Practitioner Family
DX: R06.00 Dyspnea, unspecified (principal); R53.83 Other fatigue; I10 Essential (primary) hypertension
CPT/HCPCS: 36415; 71275; 80053; 81003; 81015; 82550; 83605; 83735; 84145; 84484; 85025; 87077; 87086; 87186; 93005; 93010; 96360; 96361; 99284; Q9967

== ENCOUNTER → 2021-11-13 10:40 | Outpatient (CLI) | payer MEDICARE, MEDICAID, SELFPAY ==
[2021-07-19 11:56] VITALS: BMI 40.3
--- NOTE | 2021-11-13 12:02 | DI.CT.S_ITS ---
PROCEDURE: CT CHEST ABD PEL W CON INDICATIONS: right breast cancer, abnormal lymph node. TECHNIQUE: After the administration of oral and intravenous contrast, axial sections acquired from the supraclavicular neck to the pubic symphysis. Coronal and sagittal reformats were performed. For radiation dose reduction, the following was used: automated exposure control, adjustment of mA and/or kV according to patient size. COMPARISON:[facility], US, US BREAST LIMITED RIGHT, 09/29/2021, 11:27. [facility], CT, CT ANGIO CHEST PE PROTOCOL, 07/19/2021, 13:38. [facility], CT, CT PEL WO CON, 09/23/2018, 16:36. FINDINGS: Image quality: Excellent. CHEST: Lower Neck: No enlarged lymph nodes. Thyroid: Within normal limits. Axillae: No enlarged lymph nodes demonstrated. Chest Wall: Right shoulder arthroplasty. Beam hardening artifact. Left shoulder DJD. Right breast mass measuring 1.5 x 1.3 cm, (2/30). There is a biopsy clip within the lesion. Lungs and Airways: Mild streaky opacity which has the appearance of atelectasis. No consolidation. Calcified granuloma at the right lung base. Airways are clear. Pleura: No pneumothorax or pleural effusions. Heart: Heart size is normal. No pericardial effusion. Thoracic Vessels: The aorta and pulmonary arteries demonstrate normal size. Mediastinum and Candy: No enlarged lymph nodes. Esophagus: No wall thickening. No hiatal hernia. ABDOMEN: Liver: No focal lesion. Hepatic steatosis. Gallbladder: Absent. Biliary ducts: Unremarkable. Pancreas: Unremarkable. Spleen: Unremarkable. Adrenal Glands: No nodule. Kidneys and Ureters: No hydronephrosis. Nonobstructing right kidney stone measuring 0.5 cm. Benign cyst in the left kidney inferior pole measuring 4.9 cm. Stomach and Bowel: Stomach, small bowel loops, and colon are unremarkable. Appendix is not seen. Peritoneum: No abnormal intraperitoneal fluid. No free air. Ventral Wall: No hernia. Abdominal Nodes: No retroperitoneal or mesenteric adenopathy by size criteria. Vessels: Aorta and inferior vena cava are normal in size. Mild calcified plaque. PELVIS: Pelvic Organs: Unremarkable. Bladder: Only partially distended and not well seen. Pelvic Nodes: No enlarged lymph nodes. Miscellaneous: No inguinal hernias are seen. Bones: No suspicious lesion. Mild height loss at L2-L3 and L5. Bilateral hip arthroplasties. Beam hardening artifact. IMPRESSION: 1. Right breast mass measuring 1.5 cm with biopsy clip corresponding to the known malignancy. 2. No adenopathy is seen. 3. Hepatic steatosis. Small nonobstructing right kidney stone. Dictated by: Domenic Burk M.D. on 11/13/2021 at 13:20 Approved by: Domenic Burk M.D. on 11/13/2021 at 13:44
== END ==
PROVIDERS: PCP Nurse Practitioner Family; Referring Provider Internal Medicine Hematology & Oncology; Visit Provider Internal Medicine Hematology & Oncology
DX: C50.911 Malignant neoplasm of unspecified site of right female breast (principal); N20.0 Calculus of kidney; K76.0 Fatty (change of) liver, not elsewhere classified; Z17.0 Estrogen receptor positive status [ER+]
CPT/HCPCS: 71260; 74177

== ENCOUNTER 2022-01-19 12:04 | Emergency (ER) | payer MEDICARE, MEDICAID, SELFPAY ==
[2021-07-19 11:56] VITALS: BMI 40.3
[2022-01-19] VITALS (11 sets, daily range): BP systolic 139–155; BP diastolic 65–77; PULSE 57–73; RESP 17–30; TEMP 35.6; O2SAT 92–96; BMI 47.6
--- NOTE | 2022-01-19 12:21 | DI.RAD.S_ITS ---
PROCEDURE: XR CHEST 2V INDICATIONS: shortness of breath TECHNIQUE: 2 views of the chest were acquired. COMPARISON: [facility], CT, CT CHEST ABD PEL W CON, 11/13/2021, 12:07. [facility], CR, XR CHEST 1V, 06/04/2019, 14:56. FINDINGS: Surgical changes and devices: Surgical clips are seen projecting over the chest. A right shoulder arthroplasty is present. Right upper quadrant cholecystectomy clips. Lungs and pleura: Lungs are clear. No pleural effusions or pneumothorax. Mediastinum: Mediastinal contours are normal. Heart size is mildly enlarged and stable. Bones and chest wall: No suspicious bony abnormalities. Soft tissues appear unremarkable. Degenerative changes are seen in the spine. IMPRESSION: No acute cardiopulmonary abnormality. Dictated by: Jeremy Andre M.D. on 01/19/2022 at 13:20 Approved by: Jeremy Andre M.D. on 01/19/2022 at 13:21
[2022-01-19 14:02] LABS: Add Manual Diff / Slide Review NO; Basophils Absolute Auto 0 /uL (0-100); Basophils Percent Auto 0.5 % (0-2); Eosinophils Absolute Auto 200 /uL (0-450); Eosinophils Percent Auto 2.7 % (2-4); Hematocrit 39.4 % (36-46); Hemoglobin 12.9 g/dL (12.0-16.0); Lymphocytes Absolute Auto 1800 /uL (1100-4500); Lymphocytes Percent Auto 26.2 % (25-40); Mean Corpuscular HGB Conc 32.7 % (30-36); Mean Corpuscular Hemoglobin 32.6 PG (26-34); Mean Corpuscular Volume 99.7 fL (80-100); Monocytes Absolute Auto 600 /uL (0-900); Monocytes Percent Auto 9.4 % (3-14); Neutrophils Absolute Auto 4200 /uL (1500-7000); Neutrophils Percent Auto 61.2 % (50-75); Platelet Count 272 X10^3/uL (150-400); Red Blood Cell Count 3.95 X10^6/uL (4.0-5.2); Red Cell Distribution Width 13.3 % (11.6-14.8); White Blood Cell Count 6.9 X10^3/uL (4.5-11.0)
[2022-01-19 14:05] LABS: Alanine Aminotransferase 29 IU/L (<35); Albumin 4.2 g/dL (3.5-5.0); Albumin Globulin Ratio 1.3 (1.0-2.8); Alkaline Phosphatase 75 U/L (38-126); Aspartate Aminotransferase 39 IU/L (14-36); BUN Creatinine Ratio 29.4 (6-22); Bilirubin Total 0.5 mg/dL (0.2-1.3); Blood Urea Nitrogen 20 mg/dL (7-17); Calcium 9.3 mg/dL (8.4-10.2); Carbon Dioxide 32 mmol/L (22-32); Chloride 100 mmol/L (98-107); Creatine Kinase 57 U/L (30-135); Estimated Glomerular Filt Rate > 60 mL/min (>60); Globulin 3.2 g/dL (1.7-4.1); Glucose 156 mg/dL (80-110); HEMOLYSIS < 15 (0-50); Sodium 139 mmol/L (137-145); Total Protein 7.4 g/dL (6.3-8.2)
[2022-01-19 14:06] LABS: Lactate (Lactic Acid) 1.5 mmol/L (0.7-2.1)
[2022-01-19 14:07] LABS: D Dimer 604 ng/mL (<230)
[2022-01-19 14:17] LABS: Troponin I < 0.012 ng/mL (0.01-0.034)
[2022-01-19 14:22] LABS: COVID19 -Nasal RAPID Negative (Negative)
[2022-01-19 14:24] LABS: NT-proBNP (BNP-Adult 18+) 79 pg/mL (<125)
--- NOTE | 2022-01-19 15:08 | ED_ITS ---
HPI - SOB/Dyspnea General Chief Complaint: Shortness of Breath/Dyspnea Stated Complaint: ruling out CHF Time Seen by Provider: 01/19/22 12:52 Source: patient Mode of arrival: Wheelchair Limitations: no limitations History of Present Illness HPI Narrative: Patient is a 71-year-old female history of asthma, presumed long haul COVID symptoms, recently diagnosed with breast cancer (positive had an outpatient bilateral mastectomy in November presents today with increasing shortness of breath. She says since July of 2019 she got very ill she has had increasing shortness of breath since then. She feels that over last couple weeks as it has gotten significantly worse. She is also put on about 50 lb over the last 2 years. She has not had any fever chills. However she noticed yesterday when she got out of the shower that her abdomen moved over to the right she thought it might be full of fluid. She denies any swelling in her legs. She has some mild orthopnea. She has been using inhalers. She started herself on Lasix this week she previously had it she has lost 10 lb in about 4 days and overall feels like her breathing has improved. Related Data Home Medications Medication Instructions Recorded Confirmed Disabled Parking Permit 1 ea miscellaneous DIRECTED 02/25/18 12/18/21 citalopram 10 mg tablet 20 mg PO DAILY 11/14/18 12/18/21 acyclovir 400 mg tablet 400 mg PO DAILY 10/19/21 12/18/21 allopurinol 300 mg tablet 150 mg PO DAILY 10/19/21 12/18/21 aspirin 81 mg tablet 81 mg PO DAILY 10/19/21 12/18/21 cetirizine 10 mg tablet (Zyrtec) 10 mg PO DAILY 10/19/21 12/18/21 metformin 500 mg tablet 1,000 mg PO BID 10/19/21 12/18/21 acetaminophen 325 mg capsule 325 mg PO QID 12/18/21 12/18/21 (Tylenol) pioglitazone 15 mg tablet 15 mg PO DAILY 12/18/21 12/18/21 Previous Rx's Medication Instructions Recorded prednisone 20 mg tablet 40 mg PO DAILY #10 tabs 01/19/22 Allergies Allergy/AdvReac Type Severity Reaction Status Date / Time theophylline Allergy Severe ANGIOEDEMA Verified 01/19/22 12:18 adhesive tape Allergy Intermediate Rash Verified 01/19/22 12:18 Review of Systems Review of Systems Narrative: GENERAL: Denies chills, fatigue, malaise, fever, sweats, travel HEENT: Denies sinus pain, ear pain, sore throat, difficulty swallowing, neck pain RESPIRATORY: See HPI CARDIOVASCULAR: See HPI GASTROINTESTINAL: Denies nausea, vomiting, abdominal pain, diarrhea, constipation, melena. : Denies dysuria, frequency, incontinence, hematuria, urinary retention, flank pain. MUSCULOSKELETAL: Denies weakness, joint pain, or bony pain SKIN: No rash, no erythema, no pruritus NEUROLOGIC: Denies weakness, dizziness, headache, numbness, change in speech, confusion PSYCHIATRIC: No concerning psychosocial issues. 12 point review of systems is negative except for those stated above and HPI Patient History Medical History (Updated 01/19/22 @ 16:41 by Jenelle Schwartz DO) Anxiety Arthritis Asperger's disorder Asthma Chicken pox Depression Eczema Fatty liver Glucose intolerance Gout Herpes HTN (hypertension) Hyperlipidemia Impaired vision Measles Mumps Osteoarthritis Painful menstrual periods Palpitations Rosacea Seasonal allergies Shoulder pain Sleep apnea Takotsubo cardiomyopathy (~2016) TIA (transient ischemic attack) (~2016) Vertigo Vestibular neuritis Surgical History Anesthesia History of arthroplasty of right shoulder History of section (~1979) History of tonsillectomy History of total knee arthroplasty History of total left hip arthroplasty History of total right hip arthroplasty Hx of cholecystectomy (~2003) S/P bilateral salpingo-oophorectomy (11/14/18) S/P left unicompartmental knee replacement Status post wrist surgery Family History Brother Age: 75 High cholesterol Mental health problem Hypertension Father High cholesterol Heart disease Cancer Hypertension Stroke Mother Age: 99 High cholesterol Cancer TIA (transient ischemic attack) Breast cancer Sister Age: 66 High cholesterol Hypertension Breast cancer Sister Age: 63 High cholesterol Breast cancer Hypertension Social History household members: none Smoking Status: Never smoker alcohol intake: current Smoking Status: Never smoker alcohol intake frequency: holidays/special occasions only Substance Use Type: does not use Exam Initial Vital Signs Initial Vital Signs: Vital Signs Temperature 96.0 F L 01/19/22 12:18 Pulse Rate 60 07/08/22 12:18 Respiratory Rate 18 01/19/22 12:18 Blood Pressure 139/75 01/19/22 12:18 Pulse Oximetry 96 01/19/22 12:18 Oxygen Delivery Method 01/19/22 12:18 GENERAL: Alert pleasant 71-year-old female BMI 47 HEENT: Head atraumatic,EOMI, pupils reactive, face symmetric, moist mucous membranes CARDIOVASCULAR: Regular rate and rhythm without murmurs, rubs or gallops. RESPIRATORY: Breath sounds equal bilaterally, no wheezes rales or rhonchi. ABDOMEN: Soft, nontender. Normoactive bowel sounds all 4 quadrants. No guarding or rebound. No fluid wave EXTREMITIES: Normal range of motion, no clubbing or edema. Neurovascularly intact NEUROLOGICAL: Alert and oriented x4.Normal gait and speech. SKIN: Warm, dry, no laceration, no petechiae, no rashes or lesions. Course Orders Ordered: ED Orders 01/19/22 12:21 XR chest 2V Stat EKG-12 Lead Stat Measure peak expiratory flow ONCE RT Consult Eval and Treat Now 01/19/22 13:33 COVID19 -Nasal RAPID/Pre-Proc Stat Complete Blood Count AUTO DIFF Stat Comprehensive Metabolic Panel Stat D Dimer Stat Lactate (Lactic Acid) Stat NT-proBNP (BNP-Adult 18+) Stat Troponin & CK Cardiac Panel Stat 01/19/22 15:16 CT abdomen pelvis w con Stat CT angio chest PE protocol Stat Vital Signs Vital signs: Vital Signs - 8 hr 01/19/22 12:18 01/19/22 12:33 01/19/22 12:34 Temperature 96.0 F L Pulse Rate 60 73 65 Respiratory Rate 18 Blood Pressure 139/75 Pulse Oximetry 96 94 Oxygen Delivery Method Room Air 01/19/22 12:34 01/19/22 13:07 01/19/22 13:30 Temperature Pulse Rate 70 68 Respiratory Rate 25 H 30 H Blood Pressure 140/77 Pulse Oximetry 95 95 Oxygen Delivery Method 01/19/22 14:00 01/19/22 14:30 01/19/22 15:00 Temperature Pulse Rate 62 61 58 L Respiratory Rate 20 20 23 Blood Pressure Pulse Oximetry 95 95 95 Oxygen Delivery Method 01/19/22 15:41 01/19/22 16:00 01/19/22 16:00 Temperature Pulse Rate 68 57 L Respiratory Rate 17 20 Blood Pressure 139/65 Pulse Oximetry 92 95 Oxygen Delivery Method 01/19/22 16:30 01/19/22 16:30 Temperature Pulse Rate 59 L Respiratory Rate 18 Blood Pressure 155/68 H Pulse Oximetry 96 Oxygen Delivery Method MDM - SOB/Dyspnea Lab Data Result diagrams: 01/19/22 13:33 01/19/22 13:33 Labs: Lab Results 01/19/22 01/19/22 01/19/22 Range/Units 13:33 13:33 13:33 WBC 6.9 (4.5-11.0) X10^3/uL RBC 3.95 L (4.0-5.2) X10^6/uL Hgb 12.9 (12.0-16.0) g/dL Hct 39.4 (36-46) % MCV 99.7 (80-100) fL MCH 32.6 (26-34) PG MCHC 32.7 (30-36) % RDW 13.3 (11.6-14.8) % Plt Count 272 (150-400) X10^3/uL Neut % (Auto) 61.2 (50-75) % Lymph % (Auto) 26.2 (25-40) % [place] % (Auto) 9.4 (3-14) % Eos % (Auto) 2.7 (2-4) % Baso % (Auto) 0.5 (0-2) % Neut # (Auto) 4200 (2936-8191) /uL Lymph # (Auto) 1800 (7742-8134) /uL [place] # (Auto) 600 (0-900) /uL Eos # (Auto) 200 (0-450) /uL Baso # (Auto) 0 (0-100) /uL D-Dimer (<230) ng/mL Sodium 139 (137-145) mmol/L Potassium 4.0 (3.4-5.1) mmol/L Chloride 100 (98-107) mmol/L Carbon Dioxide 32 (22-32) mmol/L BUN 20 H (7-17) mg/dL Creatinine 0.68 (0.52-1.04) mg/dL Estimated GFR > 60 (>60) mL/min BUN/Creatinine Ratio 29.4 H (6-22) Glucose 156 H (80-110) mg/dL Lactate 1.5 (0.7-2.1) mmol/L Calcium 9.3 (8.4-10.2) mg/dL Total Bilirubin 0.5 (0.2-1.3) mg/dL AST 39 H (14-36) IU/L ALT 29 (<35) IU/L Alkaline Phosphatase 75 (38-126) U/L Total Creatine Kinase 57 (30-135) U/L CK-MB (CK-2) TNP CK-MB (CK-2) Rel Index TNP Troponin I < 0.012 (0.01-0.034) ng/mL NT-Pro-B Natriuret Pep 79 (<125) pg/mL Total Protein 7.4 (6.3-8.2) g/dL Albumin 4.2 (3.5-5.0) g/dL Globulin 3.2 (1.7-4.1) g/dL Albumin/Globulin Ratio 1.3 (1.0-2.8) SARS-CoV-2 (PCR) (Negative) 01/19/22 01/19/22 Range/Units 13:33 13:33 WBC (4.5-11.0) X10^3/uL RBC (4.0-5.2) X10^6/uL Hgb (12.0-16.0) g/dL Hct (36-46) % MCV (80-100) fL MCH (26-34) PG MCHC (30-36) % RDW (11.6-14.8) % Plt Count (150-400) X10^3/uL Neut % (Auto) (50-75) % Lymph % (Auto) (25-40) % [place] % (Auto) (3-14) % Eos % (Auto) (2-4) % Baso % (Auto) (0-2) % Neut # (Auto) (5622-4440) /uL Lymph # (Auto) (7223-5571) /uL [place] # (Auto) (0-900) /uL Eos # (Auto) (0-450) /uL Baso # (Auto) (0-100) /uL D-Dimer 604 H (<230) ng/mL Sodium (137-145) mmol/L Potassium (3.4-5.1) mmol/L Chloride (98-107) mmol/L Carbon Dioxide (22-32) mmol/L BUN (7-17) mg/dL Creatinine (0.52-1.04) mg/dL Estimated GFR (>60) mL/min BUN/Creatinine Ratio (6-22) Glucose (80-110) mg/dL Lactate (0.7-2.1) mmol/L Calcium (8.4-10.2) mg/dL Total Bilirubin (0.2-1.3) mg/dL AST (14-36) IU/L ALT (<35) IU/L Alkaline Phosphatase (38-126) U/L Total Creatine Kinase (30-135) U/L CK-MB (CK-2) CK-MB (CK-2) Rel Index Troponin I (0.01-0.034) ng/mL NT-Pro-B Natriuret Pep (<125) pg/mL Total Protein (6.3-8.2) g/dL Albumin (3.5-5.0) g/dL Globulin (1.7-4.1) g/dL Albumin/Globulin Ratio (1.0-2.8) SARS-CoV-2 (PCR) Negative (Negative) Imaging Data Chest x-ray: Radiologist's Impression: XRay Report Signed Patient: Woman,WhiteBear MR#: [id number] : 1950 Acct:[id number] Age/Sex: 71 / F Date of Service: 01/19/22 Loc: ED Accession Number: [id number] ?? Procedure: XR chest 2V Ordering Provider: Jenelle Schwartz D.O. PROCEDURE:? XR CHEST 2V ? INDICATIONS:? shortness of breath ? TECHNIQUE:? 2 views of the chest were acquired.? ? COMPARISON:? [facility], CT, CT CHEST ABD PEL W CON, 11/13/2021, 12:07.? [facility], CR, XR CHEST 1V, 06/04/2019, 14:56. ? FINDINGS:? ? Surgical changes and devices:? Surgical clips are seen projecting over the chest.? A right shoulder arthroplasty is present.? Right upper quadrant cholecystectomy clips. ? Lungs and pleura:? Lungs are clear.? No pleural effusions or pneumothorax.? ? Mediastinum:? Mediastinal contours are normal.? Heart size is mildly enlarged and stable. ? ? Bones and chest wall:? No suspicious bony abnormalities.? Soft tissues appear unremarkable.? Degenerative changes are seen in the spine. ? IMPRESSION:? No acute cardiopulmonary abnormality. ? ? Dictated by: Jeremy Andre M.D. on 01/19/2022 at 13:20 ? ? CT scan - abdomen/pelvis: Radiologist's Impression: CT Scan Report Signed Patient: Sameer Dhillon MR#: [id number] : 1950 Acct:[id number] Age/Sex: 71 / F Date of Service: 01/19/22 Loc: ED Accession Number: [id number] ?? Procedure: CT abdomen pelvis w con Ordering Provider: Jenelle Schwartz D.O. PROCEDURE:? CT ABDOMEN PELVIS W CON ? INDICATIONS:? swelling hx cancer ? TECHNIQUE:? After the administration of intravenous contrast, axial sections acquired from the lung bases to the pubic symphysis.? Coronal and sagittal reformats were performed.? For radiation dose reduction, the following was used:? automated exposure control, adjustment of mA and/or kV according to patient size.? ? COMPARISON:? [facility], CT, ABDOMEN WITH CONTRAST, 12/15/2013, 11:08.? [facility], CT, CT PEL WO CON, 09/23/2018, 16:36.? [facility], CT, CT CHEST ABD PEL W CON, 11/13/2021, 12:07. ? FINDINGS:? Image quality:? Excellent.? ? Lung bases:? Platelike atelectasis is present at the left lung base. Heart:? The heart is enlarged.? No pericardial effusion. ? ABDOMEN: Liver:? The liver is diffusely hypodense suggesting fatty infiltration. Gallbladder:? Surgically absent.? ? Biliary ducts:? Unremarkable.? ? Pancreas:? Unremarkable.? ? Spleen:? Unremarkable.? ? Adrenal Glands:? Unremarkable.? ? Kidneys and Ureters:? Kidneys are normal size.? A nonobstructing 4 mm calculus is present within the right kidney.? A low-density cyst is present within the lower pole of the. ? Stomach and Bowel:? Stomach, small bowel loops, and colon are unremarkable.? The appendix is not visualized; however there is no discrete right lower quadrant fluid or fat stranding to suggest acute appendicitis. Peritoneum:? No abnormal intraperitoneal fluid.? No free air.? ? Ventral Wall: ? No hernias.? Abdominal Nodes:? No retroperitoneal or mesenteric adenopathy by size criteria.? Vessels:? Aorta and inferior vena cava are normal in size.? ? PELVIS: Pelvic Organs:? Unremarkable.? ? Bladder:? The bladder is poorly characterized given streak artifact but appears decompressed. Pelvic Nodes: No enlarged lymph nodes.? Miscellaneous: No hernias are seen. ? ? ? Bones:? Unremarkable.? ? Bilateral hip arthroplasties are grossly intact. ? ? IMPRESSION:? ? 1. No acute intra-abdominal findings.? The appendix is not visualized; however there are no ancillary findings to suggest acute appendicitis. ? 2. Nonobstructive right nephrolithiasis. ? 3. Hepatic steatosis.? ? ? Dictated by: Danielle Cohn M.D. on 01/19/2022 at 16:03 ? ? Approved by: Danielle Cohn M.D. on 01/19/2022 at 16:16 ? CT scan - chest: Radiologist's Impression: nt: Woman,WhiteBear MR#: [id number] : 1950 Acct:[id number] Age/Sex: 71 / F Date of Service: 01/19/22 Loc: ED Accession Number: [id number] ?? Procedure: CT angio chest PE protocol Ordering Provider: Jenelle Schwartz D.O. PROCEDURE:? CT ANGIO CHEST PE PROTOCOL ? INDICATIONS:? +breast cancer +dimer ? TECHNIQUE:? After the administration of intravenous contrast, 2 mm thick sections acquired from the pulmonary apices to the posterior costophrenic angles.? 3-dimensional maximum intensity projection (MIP) coronal and sagittal reformats were then acquired through the thorax.? For radiation dose reduction, the following was used:? automated exposure control, adjustment of mA and/or kV according to patient size.? ? COMPARISON:? [facility], CT, CT ANGIO CHEST PE PROTOCOL, 07/19/2021, 13:38. ? FINDINGS:? Image quality:? Excellent.? ? Pulmonary arteries:? Pulmonary arteries are normal in size, and demonstrate no intraluminal filling defects to suggest central pulmonary embolism.? ? Lungs and pleura:? Lungs are clear.? Platelike atelectasis is present at the left lung base.? No pleural effusions or pneumothorax.? Central and peripheral airways are patent.? ? ? Mediastinum:? Heart size is enlarged, without pericardial effusion.? No mediastinal or hilar adenopathy.? Thoracic aorta is normal in caliber and enhancement.? Esophagus is normal in caliber, without hiatal hernia.? ? Bones and chest wall:? No suspicious bony lesions.? Ribs and thoracic spine appear intact throughout.? Thyroid gland is unremarkable.? No axillary or supraclavicular adenopathy.? ? Abdomen:? Visualized upper abdominal solid organs appear normal in the early arterial phase of enhancement.? ? IMPRESSION:? ? 1. No acute pulmonary embolus. ? 2. No acute pulmonary findings.? ? ? Dictated by: Danielle Cohn M.D. on 01/19/2022 at 16:06 ? ? ECG Data Interpretation: Normal sinus rhythm rate 61 NH interval 204 QRS 86 QTC 436 T-wave inversion noted in AVR similar to previous EKG in July Narrative Medical decision making narrative: Patient has been having ongoing shortness of breath for the last 2 years. She does report improved breathing with Lasix. The still having some shortness of breath. BNP is negative chest x-ray and CT chest are negative for pulmonary embolism or pulmonary edema. At this time recommend stopping the Lasix trying his own in treating for her underlying asthma. She may need to try Lasix again. She is supposed did see his cash grain farmer or employee relations consultant but not for the next few months. She is not hypoxic she does not require oxygen. Blood work is overall reassuring. His symptoms have been ongoing for a number of days troponin is negative and EKG is stable. On likely acute coronary syndrome. Discharge Plan Departure Patient Disposition: Home Clinical Impression: Asthma exacerbation Instructions: DI for Asthma -- Adult Activity Restrictions/Additional Instructions: *You have been diagnosed with possible asthma exacerbation *What to do: At this time it is difficult to tell what is causing her shortness of breath. It may be related to asthma. Blood work today is overall reassuring. X-ray and scans are also negative. Take the prednisone for 5 days see how you do over the next week. If you feel like you are significantly short of breath and had success with Lasix you may take Lasix for 4 days at a time. *Continue to take medications as directed Prednisone 40 mg once a day for 5 days *Follow up with your primary care provider in 2-3 days or call [phone] *Return to ER if you should have increasing shortness of breath, chest pain palpitations fever or any new, worsening or concerning symptoms Prescriptions: New prednisone 20 mg tablet 40 mg PO DAILY Qty: 10 0RF No Action citalopram 10 mg Tablet 20 mg PO DAILY Disabled Parking Permit 1 ea miscellaneous DIRECTED metformin 500 mg Tablet 1,000 mg PO BID cetirizine [Zyrtec] 10 mg Tablet 10 mg PO DAILY acyclovir 400 mg Tablet 400 mg PO DAILY allopurinol 300 mg Tablet 150 mg PO DAILY aspirin 81 mg Tablet 81 mg PO DAILY pioglitazone 15 mg Tablet 15 mg PO DAILY acetaminophen [Tylenol] 325 mg Capsule 325 mg PO QID Referrals: Cyndee Mancini ARNP [Primary Care Provider] - Visit Report Forms: Patient Portal/API
--- NOTE | 2022-01-19 15:16 | DI.CT.S_ITS ---
PROCEDURE: CT ANGIO CHEST PE PROTOCOL INDICATIONS: +breast cancer +dimer TECHNIQUE: After the administration of intravenous contrast, 2 mm thick sections acquired from the pulmonary apices to the posterior costophrenic angles. 3-dimensional maximum intensity projection (MIP) coronal and sagittal reformats were then acquired through the thorax. For radiation dose reduction, the following was used: automated exposure control, adjustment of mA and/or kV according to patient size. COMPARISON: [facility], CT, CT ANGIO CHEST PE PROTOCOL, 07/19/2021, 13:38. FINDINGS: Image quality: Excellent. Pulmonary arteries: Pulmonary arteries are normal in size, and demonstrate no intraluminal filling defects to suggest central pulmonary embolism. Lungs and pleura: Lungs are clear. Platelike atelectasis is present at the left lung base. No pleural effusions or pneumothorax. Central and peripheral airways are patent. Mediastinum: Heart size is enlarged, without pericardial effusion. No mediastinal or hilar adenopathy. Thoracic aorta is normal in caliber and enhancement. Esophagus is normal in caliber, without hiatal hernia. Bones and chest wall: No suspicious bony lesions. Ribs and thoracic spine appear intact throughout. Thyroid gland is unremarkable. No axillary or supraclavicular adenopathy. Abdomen: Visualized upper abdominal solid organs appear normal in the early arterial phase of enhancement. IMPRESSION: 1. No acute pulmonary embolus. 2. No acute pulmonary findings. Dictated by: Danielle Cohn M.D. on 01/19/2022 at 16:06 Approved by: Danielle Cohn M.D. on 01/19/2022 at 16:09
--- NOTE | 2022-01-19 15:16 | DI.CT.S_ITS ---
PROCEDURE: CT ABDOMEN PELVIS W CON INDICATIONS: swelling hx cancer TECHNIQUE: After the administration of intravenous contrast, axial sections acquired from the lung bases to the pubic symphysis. Coronal and sagittal reformats were performed. For radiation dose reduction, the following was used: automated exposure control, adjustment of mA and/or kV according to patient size. COMPARISON: [facility], CT, ABDOMEN WITH CONTRAST, 12/15/2013, 11:08. [facility], CT, CT PEL WO CON, 09/23/2018, 16:36. [facility], CT, CT CHEST ABD PEL W CON, 11/13/2021, 12:07. FINDINGS: Image quality: Excellent. Lung bases: Platelike atelectasis is present at the left lung base. Heart: The heart is enlarged. No pericardial effusion. ABDOMEN: Liver: The liver is diffusely hypodense suggesting fatty infiltration. Gallbladder: Surgically absent. Biliary ducts: Unremarkable. Pancreas: Unremarkable. Spleen: Unremarkable. Adrenal Glands: Unremarkable. Kidneys and Ureters: Kidneys are normal size. A nonobstructing 4 mm calculus is present within the right kidney. A low-density cyst is present within the lower pole of the. Stomach and Bowel: Stomach, small bowel loops, and colon are unremarkable. The appendix is not visualized; however there is no discrete right lower quadrant fluid or fat stranding to suggest acute appendicitis. Peritoneum: No abnormal intraperitoneal fluid. No free air. Ventral Wall: No hernias. Abdominal Nodes: No retroperitoneal or mesenteric adenopathy by size criteria. Vessels: Aorta and inferior vena cava are normal in size. PELVIS: Pelvic Organs: Unremarkable. Bladder: The bladder is poorly characterized given streak artifact but appears decompressed. Pelvic Nodes: No enlarged lymph nodes. Miscellaneous: No hernias are seen. Bones: Unremarkable. Bilateral hip arthroplasties are grossly intact. IMPRESSION: 1. No acute intra-abdominal findings. The appendix is not visualized; however there are no ancillary findings to suggest acute appendicitis. 2. Nonobstructive right nephrolithiasis. 3. Hepatic steatosis. Dictated by: Danielle Cohn M.D. on 01/19/2022 at 16:03 Approved by: Danielle Cohn M.D. on 01/19/2022 at 16:16
== END 2022-01-19 16:46 | disposition home or self-care (01) ==
PROVIDERS: Emergency Provider Emergency Medicine; PCP Nurse Practitioner Family
DX: J45.901 Unspecified asthma with (acute) exacerbation (principal); C50.911 Malignant neoplasm of unspecified site of right female breast; Z20.822 Contact with and (suspected) exposure to COVID-19
CPT/HCPCS: 36415; 71046; 71275; 74177; 80053; 82550; 83605; 83880; 84484; 85025; 85379; 87635; 93005; 93010; 99284; C9803

== ENCOUNTER → 2022-03-15 12:33 | Outpatient (CLI) | payer MEDICARE, MEDICAID, SELFPAY ==
[2021-07-19 11:56] VITALS: BMI 40.3
== END ==
PROVIDERS: PCP Nurse Practitioner Family; Referring Provider Internal Medicine Hematology & Oncology; Visit Provider Internal Medicine Hematology & Oncology
DX: M81.0 Age-related osteoporosis without current pathological fracture (principal); C50.911 Malignant neoplasm of unspecified site of right female breast; Z17.0 Estrogen receptor positive status [ER+]
CPT/HCPCS: 77080; 77081

== ENCOUNTER → 2023-09-19 11:58 | Outpatient (CLI) | payer MEDICARE, MEDICAID, SELFPAY ==
[2021-07-19 11:56] VITALS: BMI 40.3
--- NOTE | 2023-09-19 12:04 | DI.CT.S_ITS ---
PROCEDURE: CT IVP A/P W/WO INDICATIONS: Other microscopic hematuria TECHNIQUE: Optional 5 mm thick noncontrast images acquired from the diaphragm to the symphysis pubis. After the administration of intravenous contrast, 5 mm thick images acquired from the diaphragm to the symphysis pubis after a 10-minute delay. 2 mm thick coronal and sagittal reformats were then performed of the kidneys and ureters. For radiation dose reduction, the following was used: automated exposure control, adjustment of mA and/or kV according to patient size. COMPARISON: None. FINDINGS: Image quality: Diagnostic. Kidneys and Ureters: Both kidneys are normal in size, without hydronephrosis or mass. There is a 4 mm stone the lower pole of the right kidney, which is nonobstructive, measuring 803.5 Hounsfield units No perinephric fat stranding. There is normal bilateral renal enhancement. Renal calyces appear normal in morphology when filled with contrast. There is a Bosniak 2 cyst of the lower pole of the left kidney measuring 5 x 3.5 cm. Opacified portions of both ureters demonstrate normal caliber Bladder: Bladder wall thickness is normal. There is artifact which obscures the bladder. Given these limitations, no bladder lesions or calcified stones are identified in the bladder. OTHER: Lower chest: Calcified granuloma, right lung base. Liver: No solid mass. Gallbladder: Surgically absent Biliary ducts: No biliary dilation. Pancreas: No ductal dilation. Spleen: Size is within normal limits. Adrenal Glands: No adrenal nodules. Stomach and Bowel: Normal colonic caliber, without significant wall thickening. Peritoneum: No abnormal intraperitoneal fluid. No free air. Ventral Wall: No hernia. Abdominal Nodes: No retroperitoneal or mesenteric adenopathy by size criteria. Vessels: Aorta and inferior vena cava are normal in size. PELVIS: Pelvic Organs: Unremarkable. Pelvic Nodes: No enlarged lymph nodes. Miscellaneous: No inguinal hernias are seen. Bones: No aggressive osseous abnormality. Bilateral total hip arthroplasties. IMPRESSION: 1. There is a 4 mm nonobstructing right lower pole stone. 2. No renal masses, hydronephrosis, or ureteral stones. 3. Limited imaging of the bladder. If suspect bladder malignancy, recommend direct visualization. Dictated by: James Dickson M.D. on 09/19/2023 at 14:04 Approved by: James Dickson M.D. on 09/19/2023 at 15:11
[2023-09-19 12:35] LABS: Estimated Glomerular Filt Rate > 60 mL/min (>60)
== END ==
PROVIDERS: Radiology Diagnostic Radiology; PCP Family Medicine; Referring Provider Urology; Visit Provider Urology
DX: N20.0 Calculus of kidney (principal); R31.29 Other microscopic hematuria; Z90.49 Acquired absence of other specified parts of digestive tract; Z96.643 Presence of artificial hip joint, bilateral
CPT/HCPCS: 36415; 74178; 82565; Q9967

== ENCOUNTER → 2024-10-06 10:46 | Outpatient (CLI) | payer MEDICARE, MEDICAID, SELFPAY ==
[2021-07-19 11:56] VITALS: BMI 40.3
--- NOTE | 2024-10-06 10:48 | DI.NM.S_ITS ---
PROCEDURE: NM BONE SCAN WHOLE BODY RADIOPHARMACEUTICAL: 22 mCi Tc-99m MDP IV. INDICATIONS: BREAST CANCER,INVASIVE TECHNIQUE: Delayed whole-body scintigrams were obtained approximately 3-4 hours after intravenous injection of radiotracer. Anterior and posterior views were acquired from vertex to feet. Additional left and right oblique views of the ribs were obtained. COMPARISON: [facility], CT, CT CHEST ABD PEL W CON, 10/06/2024, 12:18. [facility], CT, CT IVP A/P W/WO, 09/19/2023, 12:26. [facility], MR, MR LUMBAR SPINE WITHOUT CONTRAST, 08/16/2022, 14:19. ND, ND BONE SCAN WHOLE BODY WITH 3 PHASE, 03/26/2019, 10:49. FINDINGS: Physiologic uptake is noted within the kidneys and bladder. Small punctate areas uptake are identified within portions of the thoracic and lumbar spine. Areas uptake are identified within the knees, ankles, small bones of the feet, shoulder girdles and TMT joints. IMPRESSION: No definitive areas of osseous metastatic disease. Multifocal areas of uptake most suggestive degenerative change. Dictated by: Rebekah Gilbert M.D. on 10/06/2024 at 20:38 Approved by: Rebekah Gilbert M.D. on 10/06/2024 at 20:40
--- NOTE | 2024-10-06 10:48 | DI.CT.S_ITS ---
PROCEDURE: CT CHEST ABD PEL W CON INDICATIONS: BREAST CANCER,INVASIVE TECHNIQUE: After the administration of intravenous contrast, 5 mm thick sections acquired from the lung apices to the symphysis. 5 mm coronal and sagittal reformats were performed, with additional 7 mm MIP reformats through the lungs. For radiation dose reduction, the following was used: automated exposure control, adjustment of mA and/or kV according to patient size. COMPARISON: [facility], CT, CT IVP A/P W/WO, 09/19/2023, 12:26. [facility], CT, CT CHEST ABD PEL W CON, 11/13/2021, 12:07. [facility], NM, NM BONE SCAN WHOLE BODY, 10/06/2024, 11:05. FINDINGS: Image quality: Diagnostic Lungs and pleura: Scattered scarring and atelectasis. No new or enlarging solid pulmonary nodule. No dense airspace disease or pleural effusions. Mediastinum, heart, and esophagus: Heart size is at the upper limit of normal. Unremarkable CT appearance of the esophagus. No pathologic lymphadenopathy by size criteria. Subendocardial fatty deposition of the left ventricle apex, nonspecific. Probable lipomatous hypertrophy of the interatrial septum. Chest wall and thyroid: Unremarkable thyroid. Chest wall postsurgical changes. No suspicious axillary lymphadenopathy by size criteria Liver: Hepatic steatosis and hepatomegaly measuring AP dimension of 24 cm Gallbladder and biliary system: Unremarkable biliary system. Cholecystectomy clips are seen. Pancreas: Mild parenchymal atrophy. No ductal dilation Spleen: Nonenlarged Adrenals: No discrete nodules Kidneys: No solid mass or hydronephrosis. Left inferior pole cyst. Nonobstructing right inferior pole calculus. Punctate left inferior pole calculus also present. Vessels and lymph nodes: The main portal vein appears patent. No abdominal aortic aneurysm or pathologic lymphadenopathy by size criteria. Bowel and peritoneum: No small bowel obstruction. No pathologic ascites or drainable abscess. Body wall: Unremarkable Pelvis: Almost completely obscured by metallic artifact. Bones: Bilateral hip arthroplasties. There are degenerative osseous changes. No aggressive appearing focal osseous abnormality. IMPRESSION: No active metastatic disease identified. Hepatomegaly and steatosis. Other incidental findings above. Note the pelvis is completely obscured by metallic artifact on this study. Bone scan findings are separately dictated Dictated by: Brett Bloom M.D. on 10/06/2024 at 15:17 Approved by: Brett Bloom M.D. on 10/06/2024 at 15:25
== END ==
PROVIDERS: PCP Family Medicine; Referring Provider Internal Medicine Hematology & Oncology; Visit Provider Internal Medicine Hematology & Oncology
DX: C50.211 Malignant neoplasm of upper-inner quadrant of right female breast (principal); Z17.0 Estrogen receptor positive status [ER+]; Z15.01 Genetic susceptibility to malignant neoplasm of breast; Z15.02 Genetic susceptibility to malignant neoplasm of ovary; Z15.09 Genetic susceptibility to other malignant neoplasm; K76.0 Fatty (change of) liver, not elsewhere classified; R16.0 Hepatomegaly, not elsewhere classified; N28.1 Cyst of kidney, acquired; Z96.643 Presence of artificial hip joint, bilateral
CPT/HCPCS: 71260; 74177; 78306; A9503; Q9967

== ENCOUNTER → 2024-10-29 10:00 | Outpatient (CLI) | payer MEDICARE, MEDICAID, SELFPAY ==
[2021-07-19 11:56] VITALS: BMI 40.3
--- NOTE | 2024-10-29 10:04 | DI.ECHO.S_ITS ---
[facility]---------+ [facility] : : [id number] : : [place] : : [id number] : : Phone: [phone] Echocardiogram Report + + :Name: DENISE STRANGE Study Date: 10/29/2024 Height: 66 in : :[facility] ReadingLocation: Weight: 294 lb : : Gender: Female BSA: 2.4 m2 : :: 1950 Age: 73 yrs BP: 103/85 mmHg: :Reason For Study: FIELD : :Ordering Physician: LILLIAM, : :MEI Performed By: Joseph Sheehan : :Referring: MEI VYAS : + + Interpretation Summary TDS - MORBID OBESITY, S/P DOUBLE MASTECTOMY 1. The left ventricular contractility is normal. Estimate ejection fraction of greater than 55% with no obvious segmental wall motion abnormalities. Moderate concentric LVH noted. Unable to comment on diastolic function. 2. The right ventricle was not well-visualized. In limited views, the contractility appears to be preserved. 3. No obvious left atrial nor left ventricular enlargement. The right ventricle also appears to be grossly normal in size. The right atrium was not well-visualized. 4. No obvious valvular abnormalities noted. 5. No obvious intracardiac shunts. 6. No obvious intracardiac masses nor thrombi. 7. No hemodynamically significant pericardial effusion noted. Conclusion: Normal biventricular systolic function without obvious valvular abnormalities when compared with previous echocardiogram, there does appear to be an increase in the left ventricular wall thickness. Procedure: A two-dimensional transthoracic echocardiogram with color flow and Doppler was performed. A contrast injection of Definity was performed to improve assessment of LV function. The study quality was technically difficult. The study quality was technically limited. Comparison is made with the echocardiogram of 04/04/22. The patient was in normal sinus rhythm during the exam. Left Ventricle: The left ventricle is normal in size. Left ventricular wall thickness is mild-moderately increased. The ejection fraction is estimated to be 55-60%. Right Ventricle: The right ventricle is not well visualized. Atria: The left atrium is not well visualized. Right atrium not well visualized. The interatrial septum is not well visualized. Mitral Valve: The mitral valve is not well visualized. There is no mitral regurgitation noted. Aortic Valve: The aortic valve is not well visualized. No aortic regurgitation is present. Tricuspid Valve: The tricuspid valve is not well visualized. No tricuspid regurgitation. Pulmonic Valve: The pulmonic valve is not well visualized. Great Vessels: The aortic root is mildly dilated. The ascending aorta could not be visualized. The pulmonary is not well visualized. The inferior vena cava was not well visualized. MMode/2D Measurements & Calculations LVIDd: 4.3 cm LVOT diam: 2.3 cm LVIDs: 2.7 cm Ao root diam: 3.9 cm FS: 37.0 % asc Aorta Diam: 4.0 cm IVSd: 1.4 cm Ao Arch Diam (Prox Trans): 2.1 cm LVPWd: 1.4 cm LV berry. diameter/BSA (cm/m^2): 1.8 LV sys. diameter/BSA (cm/m^2): 1.1 Doppler Measurements & Calculations Ao V2 max: 127.2 cm/sec LVOT Max Chris: 88.6 cm/sec Ao V2 mean: 83.7 cm/sec LV V1 max P.1 mmHg Ao max P.5 mmHg LV V1 VTI: 19.7 cm Ao mean P.2 mmHg LUPE(I,D): 3.2 cm2 Ao V2 VTI: 25.5 cm LUPE(V,D): 2.9 cm2 sev ratio: 0.77 LUPE indexed to BSA (cm^2/m^2): 1.3 MV E max chris: 72.4 cm/sec SV(LVOT): 80.9 ml MV A max chris: 90.6 cm/sec MV E/A: 0.80 MV dec time: 0.26 sec Reading Physician:FABY
--- NOTE | 2024-11-04 18:09 | DI.NM.S_ITS ---
DATE OF SERVICE: 10/29/2024 NUCLEAR CARDIOLOGY MYOCARDIAL PERFUSION STUDY PROCEDURE: Pharmacologic vasodilator stress and rest myocardial perfusion imaging with gating to assess ejection fraction and regional wall motion. ORDERING PROVIDER: MEREDITH Walters. INDICATIONS: The patient is a 73-year-old morbidly obese female with labile hypertension and exertional dyspnea with recent atypical chest pain. CARDIAC STRESS: Per protocol, 0.4 mg of regadenoson was infused with a normal hemodynamic response. She developed mild dyspnea but no chest discomfort. Her resting ECG shows sinus rhythm with low voltage QRS but normal ST segments. There are no significant ST-segment shifts with stress and only rare, isolated PVCs. Per protocol, 26.5 millicuries of technetium-99m Myoview was injected and she was imaged 15 minutes later using a gated SPECT acquisition protocol. Seven days later while at rest, she was injected with an 25.2 millicuries of technetium-99m Myoview and imaged 15 minutes later, again using a gated SPECT acquisition protocol. FINDINGS: 1. Raw Data: There is marginal tracer uptake with fairly marked breast artifact noted. The lung/heart ratio is normal at 0.20 with a normal TID ratio of 1.14. 2. Quantitated gated SPECT: Post-stress ejection fraction is normal at 69% without any focal wall motion abnormality. Resting ejection fraction is 82%, although visually appears unchanged to the post-stress ejection fraction. Resting end-diastolic volume is borderline increased at 115 mL. 3. Myocardial perfusion imaging: Post-stress supine images show a normal myocardial perfusion pattern without any perfusion defects. Unfortunately, the patient was unable to lie prone for any prone imaging. The resting images show an identical perfusion pattern without any significant areas of improvement. IMPRESSION: 1. Normal myocardial perfusion study. 2. No evidence of myocardial ischemia or previous myocardial infarction. 3. Normal left ventricular systolic function without focal wall motion abnormality but borderline increased left ventricular volumes. 4. No angina or ECG evidence of ischemia with pharmacologic vasodilator stress. There were rare, isolated PVCs but no complex arrhythmias. Woman, Sameer - RS/fn/[employer] doc#: [id number]/job#: [id number] dd: 11/04/2024 17:32:00 dt: 11/04/2024 17:43:00 DICTATING MD/COPIES TO: Willam Hernandez MD; MEREDITH Walters COPIES MNE: SHANTELLE;
== END ==
PROVIDERS: PCP Family Medicine; Referring Provider Family Medicine; Visit Provider Nurse Practitioner
DX: I77.89 Other specified disorders of arteries and arterioles (principal); R06.09 Other forms of dyspnea; R07.2 Precordial pain; E66.01 Morbid (severe) obesity due to excess calories; Z90.13 Acquired absence of bilateral breasts and nipples
CPT/HCPCS: C8929; Q9957